=== PATIENT | female | born 1965 | race Caucasian/White ===

== ENCOUNTER → 2020-06-09 15:34 | Outpatient (CLI) | payer BC, SELFPAY ==
--- NOTE | ~2020-06-09 | XR_ITS ---
EXAMINATION: XR chest 2V 06/09/2020 15:45 INDICATION: Cough PROCEDURE: 2 view chest COMPARISON: No prior studies for comparison. FINDINGS: The lungs are clear. The cardiomediastinal silhouette is within normal limits. There are no pleural effusions. There is no pneumothorax suspected. IMPRESSION: 1: NO ACUTE CARDIOPULMONARY DISEASE. Reviewed, dictated and finalized at location A.
== END ==
PROVIDERS: PCP Physician Assistant; Visit Provider Physician Assistant
DX: R05 Cough (principal)
CPT/HCPCS: 71046

== ENCOUNTER → 2020-09-01 10:12 | Outpatient (CLI) | payer BC, SELFPAY ==
--- NOTE | ~2020-09-01 | MR_ITS ---
EXAMINATION: MR lumbar spine wo con DATE: 09/01/2020 10:56 INDICATION: Low back pain. TECHNIQUE: Magnetic resonance imaging (MRI) of the lumbar spine was performed without intravenous con trast. Sequences included sagittal T2-weighted FSE, sagittal T2-weighted FS FSE, sagittal T1-weighted FSE, and axial T2-weighted FSE. COMPARISON: Lumbar spine radiographs 03/30/2019 FINDINGS: There is 5 degrees levocurvature of lumbar spine. Vertebral body heights are normal. Interv ertebral disc heights are normal. The distal spinal cord signal intensity is normal. The conus medull mallika is at L1. The following disc levels are specifically discussed: L1-L2: The disc does not extend beyond the endplate margin. There is no facet joint osteoarthritis. T here is no neural foraminal stenosis. There is no central canal stenosis. L2-L3: The disc does not extend beyond the endplate margin. There is mild right and moderate left fac et joint osteoarthritis. There is no neural foraminal stenosis. There is no central canal stenosis. L3-L4: The disc is mildly bulging. There is mild bilateral facet joint osteoarthritis. There is mild bilateral neural foraminal stenosis. There is no central canal stenosis. L4-L5: The disc is mildly bulging. There is severe bilateral facet joint osteoarthritis. There is mil d bilateral neural foraminal stenosis. There is mild central canal stenosis. L5-S1: The disc is bulging and has an annular fissure. There is mild bilateral facet joint osteoarthr itis. There is mild bilateral neural foraminal stenosis. There is no central canal stenosis. IMPRESSION: 1. Mild lumbar spondylosis. Reviewed, dictated and finalized at location B. OLOGY TECHNICIAN IMPRESSION: 1. Mild lumbar spondylosis.
== END ==
PROVIDERS: Visit Provider Physician Assistant
DX: M47.896 Other spondylosis, lumbar region (principal)
CPT/HCPCS: 72148

== ENCOUNTER → 2020-09-22 00:13 | Outpatient (CLI) | payer BC, SELFPAY ==
[2020-09-22 18:19] LABS: SARS-CoV-2 RNA PCR Negative
== END ==
PROVIDERS: PCP Physician Assistant; Visit Provider Internal Medicine Gastroenterology
DX: Z01.812 Encounter for preprocedural laboratory examination (principal); Z20.822 Contact with and (suspected) exposure to COVID-19
CPT/HCPCS: C9803; U0003; U0005

== ENCOUNTER 2020-11-02 11:49 | Outpatient (CLI) | payer BC, SELFPAY ==
--- NOTE | ~2020-11-02 | MMUS_ITS ---
EXAMINATION: MM diagnostic emily BI w amy, US breast BI limited HISTORY: Right breast mass TECHNIQUE: Craniocaudal, mediolateral, and mediolateral oblique 3-D tomosynthesis images of the mona ts were performed and synthetic 2-D images were generated. CAD analysis was submitted and interpreted . High resolution limited bilateral breast ultrasound was performed. COMPARISON: 02/08/2013, 07/01/2011, 06/19/2011 BREAST PARENCHYMAL COMPOSITION: The breasts are heterogeneously dense, which may obscure small masses . FINDINGS: MAMMOGRAPHIC FINDINGS: Right breast: There are several adjacent, oval, obscured masses in the anterior middle thirds of the breast which measure up to 4 cm corresponding to the palpable abnormality of concern. These demonstra te a waxing and waning comparisons when compared to prior mammograms. No suspicious architectural dis tortion or calcification are identified. Left breast: There is architectural distortion in the anterior third of the inner breast at the 9:00 location 4 cm from the nipple best appreciated on craniocaudal tomosynthesis image 38/75. No suspicio us calcification is identified. ULTRASOUND: Right breast: There are multiple cysts of the right breast in the area of palpable abnormality. The l argest measures up to 5.4 cm. No suspicious cystic or solid mass is identified. Left breast: No definite sonographic correlate is identified for the mammographically detected melina ectural distortion. IMPRESSION: 1. Multiple right breast cysts corresponding to the palpable abnormality of concern. Routine screenin g is recommended. 2. Architectural distortion of the inner left breast. Tomosynthesis guided biopsy is recommended. BI-RADS category 4, suspicious findings. Reviewed, dictated and finalized at location A. IMPRESSION: 1. Multiple right breast cysts corresponding to the palpable abnormality of con cern. Routine screening is recommended. 2. Architectural distortion of the inner left breast. Tomosynthesis guided biop sy is recommended. BI-RADS category 4, suspicious findings.
== END 2020-11-02 11:50 | disposition home or self-care (01) ==
PROVIDERS: PCP Physician Assistant; Visit Provider Internal Medicine
DX: R92.8 Other abnormal and inconclusive findings on diagnostic imaging of breast (principal)
CPT/HCPCS: 76642; 77062; 77066; G0279

== ENCOUNTER → 2020-12-30 01:44 | Outpatient (CLI) | payer BC, SELFPAY ==
[2020-12-30 19:56] LABS: SARS-CoV-2 RNA PCR Negative
== END ==
PROVIDERS: PCP Physician Assistant; Visit Provider Internal Medicine Gastroenterology
DX: Z01.812 Encounter for preprocedural laboratory examination (principal); Z20.822 Contact with and (suspected) exposure to COVID-19
CPT/HCPCS: C9803; U0003; U0005

== ENCOUNTER 2021-01-03 02:24 | Day surgery (SDC) | payer BC, SELFPAY ==
[2020-09-01 13:06] VITALS: BMI 28.1
[2020-12-26 14:08] VITALS: BMI 28.1
[2021-01-03 11:54] VITALS: BP 128/65; PULSE 70; RESP 16; TEMP 36.4; O2SAT 100
--- NOTE | 2021-01-03 12:03 | WPDGICN ---
Assessment and Plan Assessment and plan (1) GERD (gastroesophageal reflux disease): Code(s): K21.9 - Gastro-esophageal reflux disease without esophagitis Status: Acute Assessment and Plan: Patient gives a long history of heartburn and acid reflux. Occasional dysphagia and choking. Occasional hoarseness attributed to this. Because of chronic symptoms are requirements for long-term acid suppression EGD will be performed today. Otherwise anti-reflux measures with elevating head of bed at night no late snacks and bland diet is encouraged. Proton pump inhibitor therapy should continue. GI Consult Note Consult date/time: 01/03/21 12:03 HPI: Amaris Marie is a 55 year old female Seen in evaluation because of long-term acid reflux symptoms. Patient has had heartburn and acid reflux for many years. She states in 2019 had a severe episode with spasms in the mid substernal portion of the chest. Since then she has had intermittent hoarseness. Acid reflux appears to worsen. She has occasional dysphagia. ENT evaluation was performed in erosions were identified in the vocal cords suggestive of silent acid reflux. Since then she has been maintained on proton pump inhibitor therapy. Currently she has relief taking Prevacid in the morning Protonix in the evening and Pepcid supplemental at bedtime. Patient intermittently complains of worsening this. She continues to have episodes of choking despite be taking this medicine perhaps every 3 or 4 days. Patient denies any weight loss or bleeding. Family history is noncontributory. Patient has never had an EGD and presents today for surveillance endoscopy to exclude Barboza's esophagus and to assess current therapy. Review of Systems Review of Systems: All systems reviewed & are unremarkable except as noted in HPI and below [facility] Past Medical History Medical History Ganglion, right wrist Iliotibial band syndrome affecting left lower leg Lateral meniscus tear, current Family History Family History (System 11/02/20 @ 14:58 by Xiomy Guthrie) Mother Patient's mother is in good health Family history of diabetes mellitus in first degree relative Asthma Family history of elevated blood lipids Grandparent Family history of coronary artery disease, Onset Age: 75 Diabetes mellitus, Onset Age: 70 Father Hypertension Patient's father is in good health Other Family history of arthritis Family history of cardiovascular disease Family history of kidney disease Social History Social History (System 11/02/20 @ 14:58 by Xiomy Guthrie) Smoking status: Never smoker Second hand tobacco smoke exposure: No Alcohol intake: current Alcohol use details: 1-2 PER MONTH Substance use: unknown Substance use type: does not use Living arrangements: with family Gender identity (if verbalized by the patient): Female Sexual Orientation (if Verbalized by the Patient): Straight or Heterosexual Spiritual care concerns: No Meds Home Medications and Allergies Home Medications Medication Instructions Recorded Confirmed Type cholecalciferol (vitamin D3) 125 5,000 unit PO DAILY 08/24/19 09/01/20 History mcg (5,000 unit) capsule sumatriptan succinate 100 mg tablet 100 mg PO ONCE 08/24/19 09/01/20 History magnesium oxide 400 mg PO DAILY #90 cap 01/12/20 01/03/21 Rx potassium chloride 10 mEq 10 meq PO DAILY #180 tablet 02/16/20 01/03/21 Rx tablet,extended release albuterol sulfate 90 mcg/actuation 2 inhalation INHALATION Q6H PRN 05/02/20 01/03/21 History breath activated powder inhaler pantoprazole 40 mg tablet,delayed 40 mg PO QAM #90 tablet 07/04/20 09/01/20 Rx release famotidine 20 mg tablet 40 mg PO DAILY 08/29/20 09/01/20 History hydrocodone 5 mg-acetaminophen 325 1 tablet PO Q8H PRN #30 tablet 08/29/20 09/01/20 Rx mg tablet lansoprazole 30 mg capsule,delayed 30 mg PO DAILY
[2021-01-03] MEDS: LACTATED RINGERS 1,000 ML 150 ML IV CONT (12:12)
--- NOTE | 2021-01-03 12:18 | WPDANESEPPF ---
Anes - Initial Pre Proc Eval Procedure: Operation Date: 01/03/21 12:15 Proposed Procedures p Esophagogastroduodenoscopy - Diomedes Pulido MD Date/Time: 01/03/21 12:18 Surgeon: Diomedes Pulido MD Pre Op Diagnosis: Dysphagia, GERD Patient Data Age: 55 Gender: F Height: 5 ft 8 in Weight: 86.2 kg Last Vital Signs Temp 97.5 F L 01/03/21 11:54 Pulse 70 01/03/21 11:54 Resp 16 01/03/21 11:54 BP 128/65 01/03/21 11:54 Pulse Ox 100 01/03/21 11:54 Allergies Allergy/AdvReac Type Severity Reaction Status Date / Time Influenza Virus Vaccines Allergy Unknown Itching,Marco Verified 01/03/21 11:52 ma vancomycin Allergy Unknown Unknown Verified 01/03/21 11:52 azithromycin Allergy Hypotension Verified 01/03/21 11:52 [From Zithromax Z-Juaquin] clarithromycin Allergy Itching Verified 01/03/21 11:52 meperidine Allergy Itching Verified 01/03/21 11:52 naproxen Allergy Unknown Verified 01/03/21 11:52 Home Medications Medication Instructions Recorded Confirmed Type cholecalciferol (vitamin D3) 125 5,000 unit PO DAILY 08/24/19 01/03/21 History mcg (5,000 unit) capsule sumatriptan succinate 100 mg tablet 100 mg PO ONCE 08/24/19 01/03/21 History magnesium oxide 400 mg PO DAILY #90 cap 01/12/20 01/03/21 Rx potassium chloride 10 mEq 10 meq PO DAILY #180 tablet 02/16/20 01/03/21 Rx tablet,extended release albuterol sulfate 90 mcg/actuation 2 inhalation INHALATION Q6H PRN 05/02/20 01/03/21 History breath activated powder inhaler pantoprazole 40 mg tablet,delayed 40 mg PO QAM #90 tablet 07/04/20 01/03/21 Rx release famotidine 20 mg tablet 40 mg PO DAILY 08/29/20 01/03/21 History hydrocodone 5 mg-acetaminophen 325 1 tablet PO Q8H PRN #30 tablet 08/29/20 01/03/21 Rx mg tablet lansoprazole 30 mg capsule,delayed 30 mg PO DAILY 08/29/20 01/03/21 History release atorvastatin 10 mg tablet 10 mg PO DAILY #90 tablet 09/25/20 01/03/21 Rx metoprolol succinate 25 mg 25 mg PO DAILY #90 tablet 09/25/20 01/03/21 Rx tablet,extended release 24 hr triamterene 37.5 See Rx Instructions .ROUTE 10/30/20 01/03/21 Rx mg-hydrochlorothiazide 25 mg tablet .COMPLEX #90 tablet cyclobenzaprine 10 mg tablet 10 mg PO .QHS PRN #30 tablet 11/28/20 01/03/21 Rx topiramate 25 mg tablet 25 mg PO QHS #30 tablet 12/27/20 01/03/21 Rx Patient hx anesthesia problems: none Family hx anesthesia problems: none [facility] Past Medical History Medical History (Updated 01/03/21 @ 12:18 by Diomedes Pulido MD) Asthma Ganglion, right wrist Iliotibial band syndrome affecting left lower leg Lateral meniscus tear, current Migraine Family History Family History (System 11/02/20 @ 14:58 by Xiomy Guthrie) Mother Patient's mother is in good health Family history of diabetes mellitus in first degree relative Asthma Family history of elevated blood lipids Grandparent Family history of coronary artery disease, Onset Age: 75 Diabetes mellitus, Onset Age: 70 Father Hypertension Patient's father is in good health Other Family history of arthritis Family history of cardiovascular disease Family history of kidney disease Social History Social History (System 11/02/20 @ 14:58 by Xiomy Guthrie) Smoking status: Never smoker Second hand tobacco smoke exposure: No Alcohol intake: current Alcohol use details: 1-2 PER MONTH Substance use: unknown Substance use type: does not use Living arrangements: with family Gender identity (if verbalized by the patient): Female Sexual Orientation (if Verbalized by the Patient): Straight or Heterosexual Spiritual care concerns: No Anes - Eval Final PreProcedure Day of Procedure 01/03/21 12:18 Patient weight: overweight Heart: regular rate and rhythm Lungs: clear to auscultation Airway: Mallampati scale class II Neurological: alert and oriented Last oral intake: >/= 8 hours ASA classification: II Emergent: no Anesthetic plan: proceed Anesthesia typ
[2021-01-03] MEDS: BENZOCAINE (*SP) 60 ML SPRAY CAN (HURRICAINE) 1 SPRAY MUCOUS MEM (12:32)
[2021-01-03 12:43] VITALS: BP 93/55; PULSE 73; RESP 16; O2SAT 98
[2021-01-03 12:53] VITALS: BP 101/62; PULSE 76; RESP 16; O2SAT 100
[2021-01-03 13:03] VITALS: BP 106/68; PULSE 63; RESP 17; O2SAT 100
== END 2021-01-03 13:25 | disposition home or self-care (01) ==
PROVIDERS: PCP Physician Assistant; Visit Provider Internal Medicine Gastroenterology
PROC: 0DJ08ZZ Inspection of Upper Intestinal Tract, Via Natural or Artificial Opening Endoscopic (ICD-10-PCS; CPT 43235; principal; 2021-01-03 12:15)
DX: K21.9 Gastro-esophageal reflux disease without esophagitis (principal); M76.32 Iliotibial band syndrome, left leg
CPT/HCPCS: 43239; 43450; 87081; J2704; J7120

== ENCOUNTER 2021-01-17 09:42 | Outpatient (CLI) | payer BC, SELFPAY ==
[2021-01-17 10:43] LABS: Anion Gap 10 mmol/L (8-16); Blood Urea Nitrogen 18 mg/dL (7-17); Calcium 9.3 mg/dL (8.4-10.2); Carbon Dioxide 27 mmol/L (22-30); Chloride 104 mmol/L (98-107); Estimated Glomerular Filt Rate 52; Glucose 95 mg/dL (65-105); Potassium 3.7 mmol/L (3.4-5.0); Sodium 141 mmol/L (137-145)
== END 2021-01-17 09:43 | disposition home or self-care (01) ==
PROVIDERS: Anesthesiology; PCP Physician Assistant; Visit Provider Orthopaedic Surgery
DX: Z79.899 Other long term (current) drug therapy (principal); Z01.818 Encounter for other preprocedural examination
CPT/HCPCS: 36415; 80048

== ENCOUNTER → 2021-01-19 02:56 | Outpatient (CLI) | payer BC, SELFPAY ==
[2021-01-19 19:50] LABS: SARS-CoV-2 RNA PCR Negative
== END ==
PROVIDERS: PCP Physician Assistant; Visit Provider Orthopaedic Surgery
DX: Z01.812 Encounter for preprocedural laboratory examination (principal); Z20.822 Contact with and (suspected) exposure to COVID-19
CPT/HCPCS: C9803; U0003; U0005

== ENCOUNTER 2021-01-22 00:40 | Day surgery (SDC) | payer BC, SELFPAY ==
[2021-01-11 12:55] VITALS: BMI 28.1
--- NOTE | 2021-01-19 09:19 | WPDANESEPPF ---
Anes - Initial Pre Proc Eval Procedure: Operation Date: 01/22/21 07:30 Proposed Procedures p Excision Right Wrist Ganglion Cyst - Félix Reyes MD Date/Time: 01/19/21 09:19 Surgeon: Félix Reyes MD Pre Op Diagnosis: right wrist ganglion cyst Patient Data Age: 55 Gender: F Height: 1.73 m Weight: 84 kg Allergies Allergy/AdvReac Type Severity Reaction Status Date / Time Influenza Virus Vaccines Allergy Unknown Itching,Marco Verified 01/09/21 08:44 ma azithromycin Allergy Hypotension Verified 01/09/21 08:44 [From Zithromax Z-Juaquin] clarithromycin Allergy Itching Verified 01/09/21 08:44 meperidine Allergy Itching Verified 01/09/21 08:44 naproxen Allergy Swelling Verified 01/11/21 12:25 Home Medications Medication Instructions Recorded Confirmed Type cholecalciferol (vitamin D3) 125 5,000 unit PO DAILY 08/24/19 01/11/21 History mcg (5,000 unit) capsule sumatriptan succinate 100 mg tablet 100 mg PO ONCE 08/24/19 01/11/21 History potassium chloride 10 mEq 10 meq PO DAILY #180 tablet 02/16/20 01/11/21 Rx tablet,extended release albuterol sulfate 90 mcg/actuation 2 inhalation INHALATION Q6H PRN 05/02/20 01/11/21 History breath activated powder inhaler famotidine 20 mg tablet 40 mg PO DAILY 08/29/20 01/11/21 History hydrocodone 5 mg-acetaminophen 325 1 tablet PO Q8H PRN #30 tablet 08/29/20 01/11/21 Rx mg tablet lansoprazole 30 mg capsule,delayed 30 mg PO DAILY 08/29/20 01/11/21 History release triamterene 37.5 See Rx Instructions .ROUTE 10/30/20 01/11/21 Rx mg-hydrochlorothiazide 25 mg tablet .COMPLEX #90 tablet cyclobenzaprine 10 mg tablet 10 mg PO .QHS PRN #30 tablet 11/28/20 01/11/21 Rx topiramate 25 mg tablet 25 mg PO QHS #30 tablet 12/27/20 01/11/21 Rx magnesium oxide 400 mg (241.3 mg See Rx Instructions .ROUTE 01/11/21 01/11/21 Rx magnesium) tablet .COMPLEX #90 tablet metoprolol succinate 25 mg See Rx Instructions .ROUTE 01/11/21 01/11/21 Rx tablet,extended release 24 hr .COMPLEX #90 tablet pantoprazole 40 mg tablet,delayed See Rx Instructions .ROUTE 01/11/21 01/11/21 Rx release .COMPLEX #90 tablet atorvastatin 10 mg tablet 10 mg PO DAILY #90 tablet 01/12/21 01/12/21 Rx Patient hx anesthesia problems: none Family hx anesthesia problems: none PMF[facility] Past Medical History Medical History (Updated 01/19/21 @ 09:29 by Mega Medina MD) Asthma Chronic low back pain Ganglion, right wrist GERD (gastroesophageal reflux disease) Hyperlipidemia Iliotibial band syndrome affecting left lower leg Lateral meniscus tear, current Migraine Family History Family History Mother Patient's mother is in good health Family history of diabetes mellitus in first degree relative Asthma Family history of elevated blood lipids Grandparent Family history of coronary artery disease, Onset Age: 75 Diabetes mellitus, Onset Age: 70 Father Hypertension Patient's father is in good health Other Family history of arthritis Family history of cardiovascular disease Family history of kidney disease Social History Social History Smoking status: Never smoker Second hand tobacco smoke exposure: No Alcohol intake: current Alcohol use details: STATES MAYBE 1-2 DRINKS A MONTH Substance use: never Substance use type: does not use Living arrangements: with family Gender identity (if verbalized by the patient): Female Spiritual care concerns: No Anes - Eval Final PreProcedure Day of Procedure 01/19/21 09:19 Patient weight: overweight Heart: regular rate and rhythm Lungs: clear to auscultation and normal air movement Airway: Mallampati scale class II Neurological: alert and oriented Last oral intake: >/= 8 hours ASA classification: II Emergent: no Anesthetic plan: proceed Anesthesia type and monitoring: general GIVS and LMA Informed Consent
[2021-01-22] VITALS (7 sets, daily range): BP systolic 105–124; BP diastolic 57–67; PULSE 50–75; RESP 12–14; TEMP 36.3; O2SAT 96–100
--- NOTE | 2021-01-22 06:56 | WPDHPUPDATE1 ---
History and Physical Update Update Date/Time: 01/22/21 06:56 History and Physical has been reviewed, including an updated exam of the patient. There are NO changes in the patient's condition. Covid test negative. Risks, benefits, and alternatives have been discussed and questions answered. Patient agrees to proceed with procedure.
[2021-01-22] MEDS: ACETAMINOPHEN 500 MG TABLET 1000 MG PO (07:16)
[2021-01-22] MEDS: LACTATED RINGERS 1,000 ML 30 ML IV CONT ×2 (07:20→08:28)
[2021-01-22] MEDS: ceFAZolin 2 GM/D5W 50 ML 2 GM/50 ML BAG IVPB (07:29)
[2021-01-22] MEDS: BUPIVACAINE HCL 0.5% PF 30 ML VIAL INFILTRATE (07:59)
--- NOTE | 2021-01-22 08:38 | W.PM.PROC2 ---
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 Enlarging size. Patient desires excision. Findings 1.5 cm x 1 5 cm ganglion cyst volar right wrist from the flexor carpi radialis tendon sheath. Description of Procedure What was done: Patient identified in the preoperative holding. Informed consent given. Operative extremity marked. Patient received intravenous antibiotics. Patient brought to the operating room where underwent sedation by anesthesia team. Positioned supine on operating room table. Time-out performed confirming the patient, site of the surgery and the plan. Right hand and wrist prepped draped usual sterile surgical fashion using a ChloraPrep skin solution. Local anesthetic with 0.5% Marcaine plain. There was a previous transverse incision on the volar aspect of the right wrist. We utilized this incision. New incision made with 15 blade knife. Hemostasis controlled electrocautery and bipolar cautery. The cystic structure was found just deep to the fascia. This was freed up circumferentially. Was found to be attached to the volar tendon sheath of the flexor carpi radialis. This was removed as 1 unit passed off as specimen. There was mild synovium of the flexor carpi radialis which was sharply excised. All cystic material was removed. Hemostasis further controlled with bipolar cautery. Wound thoroughly irrigated with solution. Soft tissue closed with 3 Monocryl interrupted suture. Skin approximated 3 O nylon interrupted suture. Sterile dressing applied. The patient was then woken from anesthesia, extubated and taken to the recovery room in stable condition. All sponge, needle, instrument counts were correct at the end of the case. Estimated Blood Loss 5 Tourniquet Time 0 Drains No Packing No Pathology yes (Cyst volar right wrist) Complications None Condition stable Disposition PACU
[2021-01-22] MEDS: oxyCODONE HCL (*CRX) 5 MG TAB IR PO (08:50)
[2021-01-22] MEDS: fentaNYL CITRATE INJ (*CRX) 100 MCG/2 ML VIAL 25 MCG IV PUSH (08:50)
[2021-01-22] MEDS: ONDANSETRON INJ 4 MG/2 ML VIAL IV PUSH (09:34)
[2021-01-22] MEDS: SCOPOLAMINE 1.5 MG PATCH TRANSDERM (10:47)
== END 2021-01-22 11:09 | disposition home or self-care (01) ==
PROVIDERS: PCP Physician Assistant; Visit Provider Orthopaedic Surgery
PROC: (CPT 25111; principal; 2021-01-22 07:30)
DX: M67.431 Ganglion, right wrist (principal); Z79.51 Long term (current) use of inhaled steroids; G43.909 Migraine, unspecified, not intractable, without status migrainosus; K21.9 Gastro-esophageal reflux disease without esophagitis; E78.5 Hyperlipidemia, unspecified; M76.31 Iliotibial band syndrome, right leg; M25.531 Pain in right wrist
CPT/HCPCS: 25111; 88304; 88305; A9270; J0690; J1100; J1200; J2250; J2405; J2704; J3010; J7120

== ENCOUNTER → 2021-11-26 14:42 | Outpatient (CLI) | payer BC, SELFPAY ==
--- NOTE | ~2021-11-26 | XR_ITS ---
EXAM: XR lumbar spine min 4V HISTORY: Other fracture of second lumbar vertebra COMPARISON: 03/30/2019. FINDINGS: Decreased mineralization. 5 nonrib-bearing lumbar-type vertebral bodies with intact pedicl es no pars defect. Mild facet hypertrophy in the lower lumbar spine. Mild lateral scoliosis centered at L2. Vertebral bodies are aligned. Mild anterior wedge deformity at L2. Superior and inferior endpl ate deformities at multiple levels as can be seen with osteoporosis. Mild degenerative change in the SI joints. IMPRESSION: Acute versus chronic mild L2 compression fracture. Multilevel superior endplate deformities as can be seen with osteoporosis. Reviewed, dictated and finalized at location K.
== END ==
PROVIDERS: PCP Internal Medicine; Visit Provider Neurological Surgery
DX: S32.028A Other fracture of second lumbar vertebra, initial encounter for closed fracture (principal); X58.XXXA Exposure to other specified factors, initial encounter; M81.0 Age-related osteoporosis without current pathological fracture
CPT/HCPCS: 72110

== ENCOUNTER → 2021-12-26 14:35 | Outpatient (CLI) | payer BC, SELFPAY ==
--- NOTE | ~2021-12-26 | DEXA_ITS ---
Bone Density Report Name: MYRNA GARCIA Age: 56 Sex: Female Ethnicity: White Date of : 1965 Indication: postmenopausal; screening for osteoporosis; height loss; prior fracture; asthma or emphysema; hysterectomy; Referring Provider: Virgilio Lang Study: Bone densitometry was performed. Exam Date: December 26, 2021 Accession number: [id number] Bone Density: Region BMD T-score Z-score Classification AP Spine (L1-L4) 1.061 0.1 1.2 Normal Femoral Neck (Left) 0.664 -1.7 -0.6 Osteopenia Total Hip (Left) 0.846 -0.8 -0.1 Normal Femoral Neck (Right) 0.715 -1.2 -0.1 Osteopenia Total Hip (Right) 0.815 -1.0 -0.3 Normal Total Hip Mean 0.831 -0.9 -0.2 Normal World Health Organization criteria for BMD impression classify patients as: Normal (T-score at or above -1.0), Osteopenia (T-score between -1.0 and -2.5), or Osteoporosis (T-score at or below -2.5). 10-year Fracture Risk: FRAX not reported because: Prior hip or vertebral fracture Clinical Information Provided by Patient: Have had a previous hip or vertebral fracture Has had a low trauma fracture Has used the following medications: Vitamin D Has the following medical conditions: Asthma or Emphysema, Hysterectomy Patient maximum height was 69 Menopause Age: 49 No regular weight bearing exercise Drinks caffeinated beverages Onset of menses at age 15 Number of children 1 Impression: The patient has low bone mass, based on the Left Femoral Neck T-score. The patient has risk factors, including: previous fracture. Discussion: INCREASED RISK OF FRACTURE DUE TO HISTORY OF FRACTURE. The patient's previous fracture puts the patient at high risk of a future fracture. In untreated patients, the risk of osteoporotic fracture increases approximately two-fold for each 1.0 SD decrease in T-score. Low bone density is not the only risk factor for fracture; also consider factors such as patient's age, frailty or poor health, risk of falling, risk of injury, previous osteoporotic fracture, family history of osteoporosis, cigarette smoking, low body weight, etc. Not everyone with a low trauma fracture has osteoporosis; osteomalacia and other metabolic bone disorders should also be considered. Patients who have osteoporosis should be evaluated for specific diseases and conditions (secondary causes) that may cause or contribute to bone loss and fracture risk. National Osteoporosis Foundation (NOF) recommends pharmacologic intervention for patients with a prior hip or vertebral fracture regardless of BMD T-score. The patient should follow a healthful lifestyle (good nutrition with adequate calcium and vitamin D, and appropriate weight-bearing exercise). Follow-Up: Consider a repeat BMD and Vertebral Fracture Assessment (VFA) exam in 2 years or sooner if medically necessary, to reass
== END ==
PROVIDERS: PCP Internal Medicine; Visit Provider Physician Assistant
DX: S32.000A Wedge compression fracture of unspecified lumbar vertebra, initial encounter for closed fracture (principal); X58.XXXA Exposure to other specified factors, initial encounter
CPT/HCPCS: 77080

== ENCOUNTER → 2022-04-23 09:37 | Outpatient (CLI) | payer BC, SELFPAY ==
--- NOTE | ~2022-04-23 | MR_ITS ---
EXAMINATION: MR knee LT wo con DATE: 04/23/2022 10:19 INDICATION: Chronic left knee injury with pain and medial meniscal tear TECHNIQUE: Magnetic resonance imaging (MRI) of the left knee was performed without intravenous contra st. Sequences included coronal PD-weighted FSE, coronal PD-weighted FS FSE, sagittal T2-weighted FSE , sagittal PD-weighted FS FSE and axial PD weighted fat saturated FSE. COMPARISON: None. FINDINGS: Medial compartment: Medial meniscus is normal. Articular cartilage is normal. Lateral compartment: Longitudinal horizontal tear which extends to contact the cephalad articular surface at the anterior horn and body. Additional tear with truncation of the normally sharp inner free edge of the posterior horn. Articular cartilage is normal. Patellofemoral compartment: Partial-thickness chondral ulceration with deep fissuring without degenerative subchondral changes at the central aspect of the patellar apical ridge. Additional deep chondral fissuring with minimal und erlying subarticular edema-like signal change at the caudal aspect of the trochlear groove. Ligaments and tendons: Anterior and posterior cruciate ligaments are normal. The medial collateral ligament and fibular sg ateral ligament complex are normal. The extensor mechanism is normal. The visualized medial and later al hamstring tendons as well as the iliotibial band are normal. Fluid: Small left knee joint effusion at the suprapatellar pouch. There is a small suprapatellar plical band . No loose osteochondral bodies identified. Osseous/other: Normal marrow signal. No fracture or pathologic marrow replacing process. IMPRESSION: 1. Complex medial meniscal tear with longitudinal horizontal component at the anterior horn and body and with vertical tear plane with truncation of the innermost free edge of the posterior horn. 2. Mild patellofemoral osteoarthritis with small regions of moderate grade patellar and high-grade tr ochlear chondromalacia. 3. Small left knee joint effusion. Reviewed, dictated and finalized at location A. IMPRESSION: 1. Complex medial meniscal tear with longitudinal horizontal component at the a nterior horn and body and with vertical tear plane with truncation of the inner most free edge of the posterior horn. 2. Mild patellofemoral osteoarthritis with small regions of moderate grade wyman llar and high-grade trochlear chondromalacia. 3. Small left knee joint effusion.
== END ==
PROVIDERS: PCP Internal Medicine; Visit Provider Orthopaedic Surgery
DX: S83.232A Complex tear of medial meniscus, current injury, left knee, initial encounter (principal); X58.XXXA Exposure to other specified factors, initial encounter
CPT/HCPCS: 73721

== ENCOUNTER → 2022-10-30 10:32 | Outpatient (CLI) | payer BC, SELFPAY ==
--- NOTE | ~2022-10-30 | XR_ITS ---
Right Hand Technique: PA, oblique, and lateral views were obtained. Clinical History: Thumb pain Findings: No acute fracture or dislocation is seen. Osseous alignment is anatomic. Joint spaces are p reserved. Soft tissues are unremarkable. Impression: Unremarkable right hand. Reviewed, dictated and finalized at location M. Impression: Unremarkable right hand.
== END ==
PROVIDERS: PCP Physician Assistant; Visit Provider Physician Assistant
DX: M79.641 Pain in right hand (principal)
CPT/HCPCS: 73130

== ENCOUNTER → 2023-05-12 13:41 | Outpatient (CLI) | payer BC, SELFPAY ==
--- NOTE | ~2023-05-12 | CT_ITS ---
EXAMINATION: CT abdomen pelvis wo con DATE: 05/12/2023 14:01 INDICATION: Left lower quadrant sharp abdominal pain which began 05/08/2023 TECHNIQUE: Computed tomography (CT) of the abdomen and pelvis was performed without intravenous contr ast. Automated exposure control and iterative reconstruction technique were employed. Exam dose: 777 .57 mGy-cm total exam DLP. COMPARISON: September 25, 2018 radionuclide hepatobiliary scan, reported normal January 15, 2016 CT abdomen pelvis FINDINGS: The lung bases are clear. Normal heart size. No pericardial or pleural effusion. The liver, gallbladder, bile ducts, spleen, pancreas and pancreatic duct are unremarkable on this bernstein ited noncontrast examination. Normal morphology of the adrenal glands. Again noted is a nonobstructing approximately 2.5 x 4 mm right renal calculus. No ureteral calculus o r hydroureteronephrosis is noted on either side. 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 This noncontrast examination is not sensitive for exclusion of all visceral including renal space-occ upying mass lesions. Normal caliber of the abdominal aorta. No intraperitoneal or retroperitoneal or pelvic mass lesion or adenopathy or ascites. The urinary bladder is unremarkable. Status post hysterectomy. No bowel obstruction, bowel wall thickening, pneumatosis or intraperitoneal free air. Small fat-containing umbilical hernia. There is moderate chronic L2 compression fracture, chronic. Prominent degenerative changes of the apophyseal joints with minimal grade 1 anterolisthesis at L4-5. IMPRESSION: L2 compression fracture since 01/15/2016; no other significant change since 01/25/2016 is d etected on this limited noncontrast examination Reviewed, dictated and finalized at Location A. Reviewed, dictated and finalized at location B. IMPRESSION: L2 compression fracture since 01/15/2016; no other significant brock e since 01/25/2016 is detected on this limited noncontrast examination
== END ==
PROVIDERS: PCP Internal Medicine; Visit Provider Internal Medicine
DX: R10.32 Left lower quadrant pain (principal); S32.020D Wedge compression fracture of second lumbar vertebra, subsequent encounter for fracture with routine healing; X58.XXXD Exposure to other specified factors, subsequent encounter
CPT/HCPCS: 74176

== ENCOUNTER 2023-05-15 10:33 | Outpatient (CLI) | payer BC, SELFPAY ==
--- NOTE | 2023-05-15 10:43 | ECG_ITS ---
Measurements Intervals [place] Rate: 59 P: 27 MT: 160 QRS: 5 QRSD: 97 T: 18 QT: 407 QTc: 405 Interpretive Statements SINUS BRADYCARDIA NO PREVIOUS ECG AVAILABLE FOR COMPARISON Electronically Signed On 05-15-2023 12:47:22 CDT by Abelino Stevens M.D.
== END 2023-05-15 10:34 | disposition home or self-care (01) ==
LOC: ANHSURGERY 10:39
PROVIDERS: PCP Physician Assistant; Visit Provider Orthopaedic Surgery
DX: E78.5 Hyperlipidemia, unspecified (principal); Z01.818 Encounter for other preprocedural examination
CPT/HCPCS: 93005

== ENCOUNTER 2023-05-22 01:10 | Day surgery (SDC) | payer BC, SELFPAY ==
[2023-05-12 14:57] VITALS: BMI 29.6
--- NOTE | 2023-05-12 15:03 | PC.NURSE ---
Report to the Outpatient Waiting Room, entrance under the green pavilion located off [facility], at time 10:00 on date 05/22/23. Planned Procedure Time: 12:00. Time changes happen often and if your time is changed the preop area will call you the afternoon before. - You and your visitor will be asked to self-screen and do not enter if you have any COVID symptoms. - A mask is optional within the hospital at this time. Patients may have clear liquids (water, carbonated beverages, clear teas, apple juice) until 3 hours prior to surgery (9:00) with a maximum of 20 ounces. - No food from midnight until time of surgery Take the following medications with a SIP of water the morning of surgery: INHALER AND PAIN PILL IF NEEDED, TOPIRAMATE DO NOT STOP ANY OF YOUR OTHER PRESCRIPTION MEDICATIONS PRIOR TO SURGERY ?EXCEPT THE FOLLOWING Medications to discontinue per physician: VITAMINS/SUPPLEMENTS Date to take last dose: 05/18/23 Please no make-up, nail mongolian, hairspray, perfume, deodorant, or body powder the day of surgery. No jewelry (including any body piercings) or valuables the day of surgery, leave them at home. Please take a shower or bath the night before, or the morning of, surgery with an antibacterial soap. Wear comfortable, loose fitting clothing. - Jewelry must be removed prior to entering the operating room. Rings and piercings that are not removed may be cut off. - The hospital will not accept responsibility for valuables. - Please leave all valuables, including medications, at home the day of surgery. If you are going home after surgery, a licensed chair car driver must drive you home. - NO public transportation without another adult if you receive anesthesia. - We recommend that an adult stay with you for 24 hours following discharge. - We also recommend that you do not drive, make important decision, drink alcoholic beverages, or take any drugs that were not prescribed by your health care provider for at least 24 hours after your discharge time. Follow any additional instructions given to you from your surgeon. If you or anyone in your household have experienced Covid symptoms in the past week, please notify your surgeon or the nurse liaison at the phone number below for possible testing. Telephone instructions given to PT - MYRNA GARCIA and asked if any additional questions and then verbalized understanding. Patient advised to call surgeon office or pre surgery nurse liaison [phone] if any additional questions.
--- NOTE | 2023-05-21 12:23 | PM.IMHP ---
H&P: HPI History of Present Illness Date/Time: 05/21/23 12:23 Chief Complaint: Left knee pain Narrative: 58-year-old woman with left knee pain after several injuries. MRI demonstrates lateral meniscus tear and intra-articular derangement. Symptoms unrelieved with cortisone injection, therapy, home exercises. Symptoms interfere with daily activity and exercise. Presents now for operative treatment. [facility] Past Medical History Medical History Acute medial meniscus tear of left knee Arthritis of knee, left Asthma Chronic low back pain Ganglion cyst of volar aspect of right wrist Ganglion, right wrist GERD (gastroesophageal reflux disease) Hyperlipidemia Iliotibial band syndrome affecting left lower leg Lateral meniscus tear, current Migraine Family History Family History Mother Patient's mother is in good health Family history of diabetes mellitus in first degree relative Asthma Family history of elevated blood lipids Grandparent Family history of coronary artery disease, Onset Age: 75 Diabetes mellitus, Onset Age: 70 Father Hypertension Patient's father is in good health Other Family history of arthritis Family history of cardiovascular disease Family history of kidney disease Social History Social History Smoking status: Never smoker Second hand tobacco smoke exposure: No Alcohol intake: current Alcohol use details: 2/MONTH Substance use: never Substance use type: does not use Lack of Transportation: No Lack of Food: Never True Current Housing: I Have Housing Concerned About Future Housing: No Difficulty Paying Gas/Electric Bills: No Difficulty Paying for Meds: No Currently Unemployed: No Education: Bachelor's Degree Difficulty w/ Childcare or Family Care: No Living arrangements: with family Gender identity (if verbalized by the patient): Female Sexual Orientation (if Verbalized by the Patient): Straight or Heterosexual Spiritual care concerns: No Meds Home Medications and Allergies Home Medications Medication Instructions Recorded Confirmed Type cholecalciferol (vitamin D3) 125 5,000 unit PO DAILY 08/24/19 05/12/23 History mcg (5,000 unit) capsule famotidine 20 mg tablet 40 mg PO DAILY 08/29/20 05/12/23 History lansoprazole 30 mg capsule,delayed 30 mg PO DAILY 08/29/20 05/12/23 History release (Prevacid) diphenhydramine HCl 25 mg capsule 25 mg PO QHS 01/24/21 05/12/23 History (Benadryl) ondansetron HCl 4 mg tablet 8 mg PO Q8H PRN nausea and vomiting 02/15/21 05/12/23 History (Zofran) sumatriptan succinate 100 mg 50 mg PO ONCE PRN migraine headache 02/15/21 05/12/23 History tablet (Imitrex) albuterol sulfate 90 mcg/actuation 2 inh inhalation Q6H PRN ASTHMA 05/29/21 05/12/23 Rx breath activated powder inhaler ATTACK #1 ea hydrocodone 5 mg-acetaminophen 325 1 tablet PO BID PRN pain #30 tabs 10/30/22 05/12/23 Rx mg tablet pantoprazole 40 mg tablet,delayed See Rx Instructions .Route 01/03/23 05/12/23 Rx release .COMPLEX #90 tabs metoprolol succinate 25 mg See Rx Instructions .Route 01/24/23 05/12/23 Rx tablet,extended release 24 hr .COMPLEX #90 tabs potassium chloride 10 mEq 10 meq PO DAILY #180 tabs 02/14/23 05/12/23 Rx tablet,extended release calcium carbonate 600 mg calcium 600 mg PO DAILY 03/12/23 05/12/23 History (1,500 mg) tablet (Calcium) topiramate 25 mg capsule,extended See Rx Instructions .Route 03/12/23 05/12/23 Rx release 24 hr .COMPLEX #90 caps magnesium oxide 400 mg (241.3 mg See Rx Instructions .Route 05/16/23 Rx magnesium) tablet .COMPLEX #90 tabs atorvastatin 10 mg tablet See Rx Instructions .Route 05/19/23 Rx .COMPLEX #90 tabs Allergies Allergy/AdvReac Type Severity Reaction Status Date / Time Influenza Virus Vaccines
[2023-05-22] VITALS (8 sets, daily range): BP systolic 106–138; BP diastolic 66–85; PULSE 53–70; RESP 11–20; TEMP 36.6–36.9; O2SAT 100; BMI 30.2
[2023-05-22] MEDS: ACETAMINOPHEN 500 MG TABLET 1000 MG PO (11:00)
[2023-05-22] MEDS: KETOROLAC 15 MG/ML VIAL (*BKC) IV PUSH (11:01)
--- NOTE | 2023-05-22 11:26 | WPDANESEPPF ---
Anes - Initial Pre Proc Eval Procedure: Operation Date: 05/22/23 12:00 Proposed Procedures p Left Knee Arthroscopy, Debride Meniscus, Synovectomy, Chondroplasty, Proceed As Indicated - Félix Reyes MD Date/Time: 05/22/23 11:26 Surgeon: Félix Reyes MD Pre Op Diagnosis: Lt Knee Pain, Lt Meniscus Tear, Chondromalacia Patient Data Age: 58 Gender: F Height: 1.73 m Weight: 90.35 kg Last Vital Signs Temp 36.9 C 05/22/23 10:30 Pulse 69 05/22/23 10:30 Resp 20 05/22/23 10:30 BP 138/71 05/22/23 10:30 Pulse Ox 100 05/22/23 10:30 Allergies Allergy/AdvReac Type Severity Reaction Status Date / Time Influenza Virus Vaccines Allergy Unknown Itching,Marco Verified 05/22/23 10:36 ma adhesive tape Allergy Blister Verified 05/22/23 10:54 azithromycin Allergy Hypotension Verified 05/22/23 10:36 [From [facility] [employer]] clarithromycin Allergy Itching Verified 05/22/23 10:36 Macrolide Antibiotics Allergy Hypotension Verified 05/22/23 10:36 meperidine Allergy Rash Verified 05/22/23 10:36 naproxen Allergy Swelling Verified 05/22/23 10:36 Home Medications Medication Instructions Recorded Confirmed Type cholecalciferol (vitamin D3) 125 5,000 unit PO DAILY 08/24/19 05/22/23 History mcg (5,000 unit) capsule famotidine 20 mg tablet 40 mg PO DAILY 08/29/20 05/22/23 History lansoprazole 30 mg capsule,delayed 30 mg PO DAILY 08/29/20 05/22/23 History release (Prevacid) diphenhydramine HCl 25 mg capsule 25 mg PO QHS 01/24/21 05/22/23 History (Benadryl) ondansetron HCl 4 mg tablet 8 mg PO Q8H PRN nausea and vomiting 02/15/21 05/22/23 History (Zofran) sumatriptan succinate 100 mg 50 mg PO ONCE PRN migraine headache 02/15/21 05/22/23 History tablet (Imitrex) albuterol sulfate 90 mcg/actuation 2 inh inhalation Q6H PRN ASTHMA 05/29/21 05/22/23 Rx breath activated powder inhaler ATTACK #1 ea hydrocodone 5 mg-acetaminophen 325 1 tablet PO BID PRN pain #30 tabs 10/30/22 05/22/23 Rx mg tablet pantoprazole 40 mg tablet,delayed See Rx Instructions .Route 01/03/23 05/22/23 Rx release .COMPLEX #90 tabs metoprolol succinate 25 mg See Rx Instructions .Route 01/24/23 05/22/23 Rx tablet,extended release 24 hr .COMPLEX #90 tabs potassium chloride 10 mEq 10 meq PO DAILY #180 tabs 02/14/23 05/22/23 Rx tablet,extended release calcium carbonate 600 mg calcium 600 mg PO DAILY 03/12/23 05/22/23 History (1,500 mg) tablet (Calcium) topiramate 25 mg capsule,extended See Rx Instructions .Route 03/12/23 05/22/23 Rx release 24 hr .COMPLEX #90 caps magnesium oxide 400 mg (241.3 mg See Rx Instructions .Route 05/16/23 05/22/23 Rx magnesium) tablet .COMPLEX #90 tabs atorvastatin 10 mg tablet See Rx Instructions .Route 05/19/23 05/22/23 Rx .COMPLEX #90 tabs scopolamine base 1 mg over 3 days 1 patch transdermal Q3D PRN Nausea 05/22/23 05/22/23 History transdermal patch (Transderm-Scop) Patient hx anesthesia problems: none Family hx anesthesia problems: none Results Review: All pre-operative results and documents have been reviewed as part of the pre-operative evaluation. [facility] Past Medical History Medical History Acute medial meniscus tear of left knee Arthritis of knee, left Asthma Chronic low back pain Ganglion cyst of volar aspect of right wrist Ganglion, right wrist GERD (gastroesophageal reflux disease) Hyperlipidemia Iliotibial band syndrome affecting left lower leg Lateral meniscus tear, current Migraine Family History Family History Mother Patient's mother is in good health Family history of diabetes mellitus in first degree relative Asthma Family history of elevated blood lipids Grandparent Family history of coronary artery disease, Onset Age: 75 Diabetes mellitus, Onset Age: 70 Father Hypertension Patient's father is in good health Other
--- NOTE | 2023-05-22 11:47 | WPDHPUPDATE1 ---
History and Physical Update Update Date/Time: 05/22/23 11:47 History and Physical has been reviewed, including an updated exam of the patient. There are NO changes in the patient's condition. Procedure as scheduled + possibe synovectomy reviewed. Risks, benefits, and alternatives have been discussed and questions answered. Patient agrees to proceed with procedure.
[2023-05-22] MEDS: ceFAZolin 2 GM/D5W 50 ML 2 GM/50 ML BAG IVPB (11:55)
[2023-05-22] MEDS: LACTATED RINGERS 1,000 ML 30 ML IV CONT (12:00)
[2023-05-22] MEDS: BUPIVACAINE/EPINEPHRINE 0.5% 50 ML VIAL 10 ML INFILTRATE (12:26)
[2023-05-22] MEDS: BUPivacaine HCL 0.25% PF 30 ML VIAL 10 ML INFILTRATE (12:27)
[2023-05-22] MEDS: fentaNYL CITRATE INJ (*CRX) 100 MCG/2 ML VIAL 25 MCG IV PUSH ×4 (13:20→13:48)
--- NOTE | 2023-05-22 13:20 | P.OP_ITS ---
Procedure Note - Detailed Date of Procedure 05/22/23 Pre-op Diagnosis Lt Knee Pain, Lt Meniscus Tear, Chondromalacia Post-op Diagnosis Same Procedure Performed Left knee arthroscopy with partial medial and lateral meniscectomy, chondropla sty, synovectomy Surgeon Félix Reyes MD Anesthesia General Indications 58-year-old woman with left knee pain mechanical symptoms. MRI demonstrates meniscus tear and chondromalacia. She has failed conservative treatment cortisone injections, physical therapy and home therapy. She presents now for operative treatment. Findings Left knee intact ACL PCL, MCL LCL. Complex degenerative type tear of the body of the lateral meniscus with unstable superior body piece. Degenerative type tear the inner white white portion of the posterior horn medial meniscus. Root intact. Grade 3 chondromalacia patellofemoral articulation, grade 2 chondromalacia femoral condyle. Lateral femoral condyle intact. Description of Procedure Informed consent given by patient. Operative extremity marked in preoperative holding area. Patient received intravenous antibiotics. Patient brought to operating room and underwent general anesthetic by anesthesia team. Positioned supine on operating room table. Left leg placed into a posterior thigh leg silva. Foot of the table dropped to 90? and right leg padded out of the field. Time-out performed confirming patient, site of surgery and plan. Left knee prepped and draped in usual sterile surgical fashion using ChloraPrep skin solution. Standard arthroscopic portals made by using a 11 blade knife for the anterior lateral portal 1st. Capsule penetrated bluntly. Camera and inflow started. The below operative findings noted. Intra-articular visualization used to position the anterior medial portal using 22 gauge spinal needle. A 11 blade knife used for the skin and blunt penetration of the capsule. 4.7 millimeter arthroscopic shaver introduced and partial medial meniscectomy of the loose and torn portion performed. Shaver then positioned in the lateral compartment and partial lateral meniscectomy performed. Edge of meniscus completed with arthroscopic Wand. Arthroscopic Wand used to perform chondroplasty of the patellofemoral articulation and the medial femoral condyle. Shaver reintroduced and a synovectomy performed of the anterior fat pad and extensive synovium as well as medial and lateral plica. Bleeding points coagulated with Wand. Knee inspected, no loose pieces noted. 1 liter of irrigant infused and suction out. Arthroscopic cannulas removed. Skin closed with 4 nylon interrupted suture. Local anesthetic with 0.25% Marcaine. Estimated Blood Loss 5 Tourniquet Time 0 Drains No Packing No Pathology None sent Complications None Condition Stable Disposition PACU [facility] Billing Surgery - Charge Forward: Surgery Billing ([id number], [id number])
== END 2023-05-22 14:57 | disposition home or self-care (01) ==
PROVIDERS: PCP Physician Assistant; Visit Provider Orthopaedic Surgery
PROC: (CPT 29870; principal; 2023-05-22 12:00)
DX: S83.232A Complex tear of medial meniscus, current injury, left knee, initial encounter (principal); S83.272A Complex tear of lateral meniscus, current injury, left knee, initial encounter; M22.42 Chondromalacia patellae, left knee; M65.862 Other synovitis and tenosynovitis, left lower leg; X58.XXXA Exposure to other specified factors, initial encounter; J45.909 Unspecified asthma, uncomplicated; E78.5 Hyperlipidemia, unspecified; K21.9 Gastro-esophageal reflux disease without esophagitis; E66.9 Obesity, unspecified; Z68.30 Body mass index [BMI] 30.0-30.9, adult; Z79.51 Long term (current) use of inhaled steroids
CPT/HCPCS: 29880; A9270; J0690; J1100; J1200; J1885; J2250; J2371; J2405; J2704; J3010; J7120

== ENCOUNTER 2023-07-15 10:05 | Outpatient (CLI) | payer BC, SELFPAY ==
--- NOTE | ~2023-07-15 | US_ITS ---
EXAMINATION:US venous doppler LE BI INDICATION:Leg swelling. Recent knee surgery. TECHNIQUE: Multiple grayscale, color flow and Doppler images of the right and left lower extremity de ep venous systems were obtained and reviewed. COMPARISON:No prior studies for comparison. FINDINGS: The common femoral, superficial femoral and popliteal veins demonstrate normal respiratory variation, augmentation and compressibility. Color flow is also seen within the posterior tibial, pe roneal, greater saphenous and profunda veins. There is nonspecific fluid surrounding the left knee. IMPRESSION: 1: No lower extremity deep venous thrombosis. Reviewed, dictated and finalized at location L. FARMER
== END 2023-07-15 10:06 | disposition home or self-care (01) ==
PROVIDERS: PCP Physician Assistant; Visit Provider Orthopaedic Surgery
DX: I82.403 Acute embolism and thrombosis of unspecified deep veins of lower extremity, bilateral (principal)
CPT/HCPCS: 93970

== ENCOUNTER 2023-11-28 10:30 | Outpatient (CLI) | payer BC, SELFPAY ==
--- NOTE | ~2023-11-28 | CT_ITS ---
Non-contrast Head CT History: Headache Technique: Axial non-contrast imaging of the brain was performed. Dose reduction technique was used on this scan by utilizing automated exposure control and iterative reconstruction technique. The dose -length product (DLP) was 599.57 mGy-cm. Findings: There is no evidence of intracranial hemorrhage, mass lesion, or acute infarct. Brain par enchyma appears normal. The ventricles and subarachnoid spaces are normal in size. The calvarium ap pears normal. The visualized paranasal sinuses and mastoid air cells are clear. Impression: No significant abnormality seen. Reviewed, dictated and finalized at location . Impression: No significant abnormality seen.
== END 2023-11-28 10:31 ==
LOC: MICIMG 10:31
PROVIDERS: PCP Student in an Organized Health Care Education/Training Program; Visit Provider Student in an Organized Health Care Education/Training Program
DX: R51.9 Headache, unspecified (principal)
CPT/HCPCS: 70450

== ENCOUNTER 2024-04-30 08:18 | Outpatient (CLI) | payer BC, SELFPAY ==
--- NOTE | ~2024-04-30 | US_ITS ---
Limited Abdominal Sonogram: Real-time sonographic imaging of the right upper quadrant was performed. Clinical History: Right upper quadrant pain Findings: The liver appears normal with no evidence of mass lesion or bile duct dilatation. Main por mary vein demonstrates normal direction of flow. The gallbladder is well distended, and appears normal with no evidence of gallstone or wall thickening. The common bile duct measures 4 mm. The visualize d pancreas, aorta, and IVC are unremarkable. Right kidney measures 11.6 cm in length, without hydrone phrosis or visualized stone. Impression: No significant abnormality seen. Reviewed, dictated and finalized at location . Impression: No significant abnormality seen.
== END 2024-04-30 08:19 | disposition home or self-care (01) ==
LOC: MICIMG 08:19
PROVIDERS: PCP Internal Medicine; Visit Provider Internal Medicine
DX: R10.11 Right upper quadrant pain (principal)
CPT/HCPCS: 76705

== ENCOUNTER 2024-09-15 15:22 | Outpatient (CLI) | payer BC, SELFPAY ==
--- NOTE | ~2024-09-15 | XR_ITS ---
HISTORY: M25.559 - Pain in unspecified hip COMPARISON: None TECHNIQUE: 2 views of the right hip. FINDINGS: No acute fracture or dislocation is identified. Superior lateral sclerosis of the femoral acetabular joint space is present, consistent with osteoart hritis. Joint space narrowing detected within the right SI joint with sclerosis. Age-appropriate mineralization. IMPRESSION: Degenerative disease without acute fracture or dislocation Reviewed, dictated and finalized at location A. [employer]
== END 2024-09-15 15:23 | disposition home or self-care (01) ==
LOC: MICIMG 15:23
PROVIDERS: PCP Internal Medicine; Visit Provider Nurse Practitioner
DX: M16.11 Unilateral primary osteoarthritis, right hip (principal)
CPT/HCPCS: 73502

== ENCOUNTER 2024-10-05 00:50 | Day surgery (SDC) | payer BC, SELFPAY ==
[2024-09-20 13:39] VITALS: BMI 30.2
--- OUTSIDE RECORDS SUMMARY | 2024-10-05 00:53 | XMS_ITS | Clinical Summary ---
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 Surgical History Surgery Date Site/Laterality Comments BREAST BIOPSY 11/20/2020 Left Family History Medical History Relation Name Comments Arthritis Father Family history of arthritis - (Added by TW Conv) Hypertension Father Family history of hypertension - (Added by TW Conv) Kidney disease Father Family histor y of kidney disease - (Added by TW Conv) Arthritis Mother Family history of arthritis - (Added by TW Conv) Diabetes Mother Family history of diabetes mellitus - (Added by TW Conv) Lung disease Mother Family history of lung disease - (Added by TW Conv) Relation Name Status Comments Father Mother Social History Tobacco Use Types Packs/Day Years Used Date Smoking Tobacco: Never Personal Safety Answer Date Recorded Getting School Help Needed Not on file 10/23 Comments Unknown Sex and Gender Information Value Date Recorded Sex Assigned at Not on file Legal Sex Female 1:47 AM JAVA TECH Gender Identity Not on file Sexual Orientation Not on file Obstetrics History Last Filed Vital Signs Vital Sign Reading Time Taken Comments Blood Pressure 114/70 10/26/2015 1:30 PM CDT Pulse 74 10/26/2015 1:30 PM CDT Temperature - - Respiratory Rate - - Oxygen Saturation 99% 10/26/2015 1: 30 PM CDT Inhaled Oxygen Concentration - - Weight 83.9 kg (184 lb 15.5 oz) 021 10:39 AM JAVA TECH Height 172.7 cm (5' 8 ) 07/09/2021 10:3 9 AM JAVA TECH Body Mass Index 28.12 07/09/2021 10:39 AM JAVA TECH Plan of Treatment Health Maintenance Due Date Last Done Comments Cervical Cancer Screening 1966 Colon Cancer Screening-Colonoscopy 1966 Depression Screening 1966 Hepatitis C Screening 1966 DTaP/Tdap/Td Vaccine (1 - Tdap) 1977 Regular Well Visit/Exam 18-64 1984 Zoster Vaccine (1 of 2) 2016 Influenza Vaccine (#1) 2024 , 05/19/2019, 05/07/2017, Additional history exists Breast Cancer Screening-Mammogram 05/19/2025 05/19/2024, 02/14/2023, 02/14/2023, Additional history exists Hepatitis B Screening Completed 10/29/2015, 015 Pneumococcal vaccine <65 Aged Out No longer eligible based on patient's age to complete this topic Medical Devices Implanted Type Area Mortgage Closer Device Identifier Shelf Expiration Date Model / Serial / Lot Orif Rt Foot-12/20/1991 Implanted:12/19 (Quantity not on file) Right: Foot Procedures Procedure Name Priority Date/Time Associated Diagnosis Comments SCREENING MAMMOGRAM BILATERAL W CHATO Schedule Routine, Read Routine (OP Routine) 05/19/2024 12:06 PM CDT Screening mammogram, encounter for from Last 3 Months or Most Recently Relevant to Health Maintenance Results * Screening Mammogram Bilateral W Chato (05/19/2024 12:06 PM CDT) Anatomical Region Laterality Modality Breast Bilateral Mammography Narrative 05/20/2024 10:01 AM CDT Mammogram Technique: Bilateral Digital Breast Tomosynthesis, Bilateral C-view 2D Screening mammogram. Views obtained: bilateral craniocaudal and bilateral mediolateral oblique. Computer Aided Detection was performed. Mammogram Findings: The present examination has been compared to prior imaging studies performed on 11/02/2020, and at [facility] on 07/09/2021 and 02/14/2023. The breasts are heterogeneously dense, which may obscure small masses. There are multiple masses in the right breast. There are no significant changes from the prior study. There is no suspicious abnormality in either breast. Impression: There is no mammographic evidence of malignancy. Annual screening mammography is recommended. If supplemental screening is desired, breast MRI would be recommended in this patient with heterogeneously dense breasts. OVERALL FINAL ASSESSMENT: BI-RADS CATEGORY 2: Benign. Procedure Note Cyndy Freeman MD - 05/20/2024 Mammogram Technique: Bilateral Digital Breast Tomosynthesis, Bilateral C-view 2D Screening mammogram. Views obtained: bilateral craniocaudal and bilateral mediolateral oblique. Computer Aided Detection was performed. Mammogram Findings: The present examination has been compared to prior imaging studies performed on 11/02/2020, and at [facility] on 07/09/2021 and 02/14/2023. The breasts are heterogeneously dense, which may obscure small masses. There are multiple masses in the right breast. There are no significant changes from the prior study. There is no suspicious abnormality in either breast. Impression: There is no mammographic evidence of malignancy. Annual screening mammography is recommended. If supplemental screeningis desired, breast MRI would be recommended in this patient with heterogeneously dense breasts. OVERALL FINAL ASSESSMENT: BI-RADS CATEGORY 2: Benign. us Self Screening Mammogram IMG MAMMO PROCEDURES Fi nal Result from Last 3 Months or Most Recently Relevant to Health Maintenance Insurance ANTHEM ACCESS CHOICE Member Subscriber Plan / Payer (Ef fective 2020-Present) Name:Maribel Marie Member ID:[id number] Relation to Subscriber:Not on file Subscriber ID:Not on file Payer ID:[id number] (NAIC) Type:[employer] Address: [address] [facility] Care Teams Chinese Teacher Relationship Specialty Start Date End Date Krzysztof Martines MD [address] [place] [address] PCP - General 11/22/16
--- OUTSIDE RECORDS SUMMARY | 2024-10-05 00:53 | XMS_ITS | Continuity of Care Document ---
Author Organization [facility] Address [address] [place] [address] [address] [place] [address] Phone Care Team Providers Care Pin Ticket Machine Operator Name Role Phone Michel PT, Jace PISANO Unavailable Unavailable Procedures Procedure Date Progress Note Therapeutic Activities Therapeutic Activities Therapeutic Activities Therapeutic Activities Progress Note Therapeutic Activities Neuromuscular Re-Ed Therapeutic Exercise Therapeutic Activities Neuromuscular Re-Ed Therapeutic Exercise Therapeutic Activities Neuromuscular Re-Ed Therapeutic Exercise Therapeutic Activities Neuromuscular Re-Ed Therapeutic Exercise Therapeutic Activities Neuromuscular Re-Ed Therapeutic Exercise Therapeutic Activities Neuromuscular Re-Ed Therapeutic Exercise Therapeutic Activities Neuromuscular Re-Ed Therapeutic Exercise Therapeutic Activities Neuromuscular Re-Ed Therapeutic Exercise Therapeutic Activities Neuromuscular Re-Ed Therapeutic Exercise Progress Note Therapeutic Activities Neuromuscular Re-Ed Therapeutic Exercise Therapeutic Activities Neuromuscular Re-Ed Therapeutic Exercise Therapeutic Activities Neuromuscular Re-Ed Therapeutic Exercise Therapeutic Activities Neuromuscular Re-Ed Therapeutic Exercise Therapeutic Activities Neuromuscular Re-Ed Therapeutic Exercise Therapeutic Activities Neuromuscular Re-Ed Therapeutic Exercise Therapeutic Activities Neuromuscular Re-Ed Therapeutic Exercise PT Evaluation Moderate Complexity Therapeutic Activities Neuromuscular Re-Ed Therapeutic Exercise OT EVALUATION THERAPEUTIC EXERCISES ORTHOTIC FITTING Advance Directives Directive Yes / No Effective Date File Name No Information Encounters Encounter Description Practice Location Reason(s) For Visit Diagnoses Date Provider Providers Copied on Encounter [facility] [employer] [facility], [place], [place], [id number], tel:[phone] [place] No Information 4 Michel Mccormick. . [facility] [employer] [place], [id number], tel:[phone] [place] No Information 4 Michel Mccormick. . Referring Provider: Félix Reyes [address] [facility] [address], [place], [address]. [facility] [employer] [address], [place], [place], [id number], tel:[phone] [place] No Information 4 Michel Mccormick. . Referring Provider: Félix Reyes [address] [facility] [address], [place], [address]. [facility], [place], [place], [address], [place] tel:[phone] [place] No Information 4 Klahn Jace. . Referring Provider: Félix Reyes, [address] [place] [address] [address], [place], [address]. [facility], [address], [place], [place], [address], [place] tel:[phone] [place] No Information 4 Klahn Jace. . Referring Provider: Félix Reyes, [address] [place] [address] [address], [place], [address]. [facility], [address], [place], [place], [address], [place] tel:[phone] [place] No Information 4 Kln Jace. . Referring Provider: Félix Reyes, [address] [place] [address] [address], [place], [address]. [facility], [address], [place], [place], [address], [place] tel:[phone] [place] No Information 4 Kln Jace. . Referring Provider: Félix Reyes, [address] [place] [address] [address], [place], [address]. [facility], [address], [place], [place], [address], [place] tel:[phone] [place] No Information 4 Kln Jace. . Referring Provider: Félix Reyes, [address] [place] [address] [address], [place], [address]. [facility], [address] [place] [address], [place], [place], [address], [place] tel:[phone] [place] No Information 3 Klahn Jace. . Referring Provider: Félix Reyes, [address] [place] [address] [address], [place], [address]. [facility], [address], [place], [place], [address], [place] tel:[phone] [place] No Information 3 Klahn Jace. . Referring Provider: Félix Reyes, [address] [place] [address] [address], [place], [address]. [facility], [address], [place], [place], [address], [place] tel:[phone] [place] No Information 3 Klahn Jace. . Referring Provider: Félix Reyes, [address] [place] [address] [address], [place], [address]. [facility], [address], [place], [place], [address], [place] tel:[phone] [place] No Information 3 Klahn Jace. . Referring Provider: Félix Reyes, [address] [place] [address] [address], [place], [address]. [facility] [address] [facility] [address], [place], [place], [address], [place] tel:[phone] [place] No Information 3 3 Klahn Jace. . Referring Provider: Félix Reyes, [address] [place] [address] [address], [place], [address]. [facility] [address] [facility] [address] [facility] [address], [place], [place], [address], [place] tel:[phone] [place] No Information 3 Klahn Jace. . Referring Provider: Félix Reyes [address] [place] [address] [address], [place], [address]. [facility], [address], [place], [place], [address], [place] tel:[phone] [place] No Information 2 3 Klahn Jace. . Referring Provider: Félix Reyes, [address] [place] [address] [address], [place], [address]. [facility] [address], [place], [place], [address], [place] tel:[phone] [place] No Information 3 Klahn Jace. . Referring Provider: Félix Reyes [address] [place] [address] [address], [place], [address]. [facility] [address] [facility], [place], [place], [address], [place] tel:[phone] [place] No Information Nov-1 3-202 3 Klahn Jace. . Referring Provider: Félix Reyes, [address] [place] [address] [address], [place], [address]. [facility] [address] [facility] [address], [place], [place], [address], [place] tel:[phone] [place] No Information Nov-0 9-202 3 Klahn Jace. . Referring Provider: Félix Reyes, [address] [place] [address] [address], [place], [address]. [facility] [address] [facility] [address], [place], [place], [address], [place] tel:[phone] [place] No Information Nov-0 6-202 3 Klahn Jace. . Referring Provider: Félix Reyes, [address] [place] [address] [address], [place], [address]. [facility], [address] [facility] [address], [place], [place], [address], [place] tel:[phone] [place] No Information Nov-0 2-202 3 Klahn Jace. . Referring Provider: Félix Reyes, [address] [place] [address] [address], [place], [address]. [facility] [address] [facility] [address], [place], [place], [address], [place] tel:[phone] [place] No Information Oct-3 0-202 3 Klahn Jace. . Referring Provider: Félix Reyes, [address] [place] [address] [address], [place], [address]. [facility] [address] [facility] [address], [place], [place], [address], [place] tel:[phone] [place] No Information Oct-2 7-202 3 Klahn Jace. . Referring Provider: Félix Reyes [address] [place] [address] [address], [place], [address]. [facility] [facility] [address], [place], [place], [address], [place] tel:[phone] [place] Pain in left finger(s)Rec urrent dislocation, left finger Ovi-0 [address]. [address] [facility], [address], [place], [address], [place]. tel:[phone] Referring Provider: Félix Reyes, [address] [facility] [address], [place], [address]. Family History Family Member Type Diagnosis Age At Onset No Information Payers Payer name Insurance type Covered constitution party ID Authorcristhiana jaime(s) [facility] [id number] Social History Type Description Quantity Date Captured Comments Sex Female Smoking Status No Information Chief Complaint And Reason For Visit No Information Reason For Referral Reason For Referral No Information History Of Present Illness Encounter Date Complaint History Of Prese nt Illness No Information Functional Status Date Functional Assessmen t No Information Instructions Date Instruction Additional Infor ryan Giving encouragement to exercise Related to Overweight Giving encouragement to exercise Related to Overweight Assessments Type Assessment Date No Information Patient Care Teams Name Effective Dates (start - stop) Status Members No Information
--- OUTSIDE RECORDS SUMMARY | 2024-10-05 00:53 | XMS_ITS | Clinical Summary ---
Author Organization [facility] Address [facility] [place] [address] Care Team Providers Care Pharm Spec Name Role Phone Krzysztof Martines MD Primary Care Provider [phone] Allergies Active Allergy Reactions Criticality Noted Date Comments Tape Rash Low 05/07/2024 Erythromycin Tachycardia High 05/07/2024 Macrolides And Ketolides Other (see comment),Rash Low 10/06/2021 BP drop and loss of hearing Naproxen Anaphylaxis High 05/07/2024 Thimerosal (Thiomersal) Hives,Itching,Sw ellin g 06/07/2024 Medications pantoprazole EC (PROTONIX) 40 MG tablet Take 1 tablet (40 mg total) by mouth daily. Active Magnesium Oxide (MAG-OX 400 OR) Take 1 tablet by mouth daily. Active metoprolol succinate ER (TOPROL-XL) 25 MG 24 hr tablet Take 1 tablet (25 mg total) by mouth nightly. Active rimegepant (NURTEC) 75 MG disintegrating tablet Take 1 tablet (75 mg total) by mouth as needed. Max of 1 tablet (75 mg) in 24 hours. Active atorvastatin (LIPITOR) 10 MG tablet Take 1 tablet (10 mg total) by mouth nightly at bedtime. Active Cholecalciferol (VITAMIN D3) 125 MCG (5000 UT) Chew Tab Chew 1 capsule by mouth daily. Active triamterene-hydroCH LOROthiazide (DYAZIDE) 37.5-25 MG capsule Take 0.5 capsules by mouth daily. Pt 1/2 tab am Active topiramate (TOPAMAX) 25 MG tablet Take 1 tablet (25 mg total) by mouth daily. Active lansoprazole (PREVACID) 30 MG capsule Take 1 capsule (30 mg total) by mouth after dinner. Active famotidine (PEPCID) 40 MG tablet Take 1 tablet (40 mg total) by mouth nightly. Active gabapentin (NEURONTIN) 100 MG capsule Take 1 capsule (100 mg total) by mouth 2 (two) times a day. Active cetirizine (ZYRTEC) 10 MG tablet Take 1 tablet (10 mg total) by mouth daily. Active potassium chloride CR (K-TAB) 10 MEQ Tab CR tablet Take 1 tablet (10 mEq total) by mouth daily. 4 Active Potassium Chloride 10 MEQ Pack 1 tablet by Other route daily. Active SUMAtriptan (IMITREX) 50 MG tablet Take 1 tablet (50 mg total) by mouth 2 (two) times daily as needed for Migraine. Max of 4 tablets (200 mg) in 24 hours. Active Active Problems Problem Noted Date Diagnosed Date Primary osteoarthritis of left knee 06/07/2024 Encounters Date Type Department Care Team Description 10/04/2024 9:45 AM CULINARY ASSISTANT Hospital Encounter [facility] [address] [place] [address] Tangela Gordon Jr., DO Arrived 10/04/2024 9:45 AM CULINARY ASSISTANT Office Visit [address] [address] Tangela Gordon Jr., Hip Pain (RIGHT - DOI: 09/12/2024) 10/04/2024 Travel 09/23/2024 Orders Only [address] [address] Tangela Gordon Jr., DO from Last 3 Months Social History Tobacco Use Types Packs/Day Years Used Date Smoking Tobacco: Never Smokeless Tobacco: Never Tobacco Cessation:Counseling Given: Not Answered Alcohol Use Standard Drinks/Week Comments Yes 0 (1 standard drink = 0.6 oz pur e alcohol) Socially Comments Unknown Sex and Gender Information Value Date Recorded Sex Assigned at Female 10/04/2024 9:49 AM CULINARY ASSISTANT Legal Sex Female 7:01 PM CDT Gender Identity Not on file Sexual Orientation Not on file Last Filed Vital Signs Vital Sign Reading Time Taken Comments Blood Pressure 117/50 05/13/2024 10:55 AM CDT Pulse 70 05/13/2024 10:55 AM CDT Temperature 36.7 C (98.1 F) 05/13/2024 10:55 AM CDT Respiratory Rate 18 05/13/2024 10:55 AM CDT Oxygen Saturation 97% 05/13/2024 10:55 AM CDT Inhaled Oxygen Concentration - - Weight 92.1 kg (203 lb) 10/04/2024 9:51 AM CULINARY ASSISTANT Height 172.7 cm (5' 8 ) 10/04/2024 9:51 AM CULINARY ASSISTANT Body Mass Index 30.87 10/04/2024 9:51 AM CULINARY ASSISTANT Plan of Treatment Upcoming Encounters Date Type Department Care Team (Late st Contact Info) Description 11/01/2024 10:00 AM CDT Office Visit [address] [address] Tangela Gordon Jr., DO [address] [place] [address] Health Maintenance Due Date Last Done Comments Colorectal Cancer Screening Colonoscopy (10 Years) 1966 Annual Physical 1969 Hepatitis C 1984 DTaP, Tdap and Td Vaccines (1 - Tdap) 1985 Hepatitis B Vaccines (1 of 3 - 19+ 3-dose series) 1985 Zoster Vaccines (1 of 2) 2016 COVID-19 Vaccine ( season) 2024 05/21/2022, 12/03/2021, 04/09/2021, Additional history exists Influenza Adult (#1) 2024 06/25/2023, 05/21/2022, 05/29/2021, Additional history exists Mammogram Screening 05/19/2026 05/19/2024, 02/14/2023, 07/09/2021 Meningococcal B Vaccine Aged Out No l onger eligible based on patient's age to complete this topic Meningococcal Vaccine Aged Out No behzad linda eligible based on patient's age to complete this topic Pneumococcal Vaccine: Pediatrics (0 to 5 Years) and At-Risk Patients (6 to 64 Years) Aged Out No longer eligible based on patient's age to complete this topic RSV Immunizations Under 20 Months Aged Out No longer eligible based on patient's age to complete this topic Medical Devices Explanted Type Area Senior Materials Analyst Device Identifier Shelf Expiration Date Model / Serial / Lot K Wire Nellie 9 In X .045 In - [id number] Explanted:Qty: 1 on 05/13/2024 by Wili Ann MD at [facility] Wire Right: Wrist [employer] [id number] / / NA Procedures Procedure Name Priority Date/Time Associated Diagnosis Comments XR PELVIS 1 OR 2 VIEWS Routine 10/04/2024 10:00 AM CULINARY ASSISTANT Right hip pain from Last 3 Months Results * XR PELVIS 1 OR 2 VIEWS (10/04/2024 10:00 AM CULINARY ASSISTANT) Anatomical Region Laterality Modality Pelvis Radiographic Keiry ging 10/04/2024 11:0 5 AM CULINARY ASSISTANT Impressions 10/04/2024 11:06 AM CULINARY ASSISTANT IMPRESSION: 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 Ordered By: TANGELA ARNDT V Interpreted By: Demario Lara MD, 10/04/2024 11:05 AM Narrative 10/04/2024 11:06 AM CULINARY ASSISTANT [address] [place] [id number] Procedure(s): XR PELVIS 1 OR 2 VIEWS Date of service: 10/04/2024 10:00 AM Provided clinical information: 59 years, Female, right hip pain Procedure and materials: AP pelvis Comparison studies: May 27, 2018. Findings: Bony pelvis is intact without evidence of fracture or dislocation. Muscular cysts is present about the acetabulum bilaterally left greater than right. Findings are similar as compared May 2018. Procedure Note Demario Lara MD - 10/04/[address] [place] [id number] Procedure(s): XR PELVIS 1 OR 2 VIEWS Date of service: 10/04/2024 10:00 AM Provided clinical information: 59 years, Female, right hip pain Procedure and materials: AP pelvis Comparison studies: May 27, 2018. Findings: Bony pelvis is intact without evidence of fracture or dislocation.Muscular cysts is present about the acetabulum bilaterally left greaterthan right. Findings are similar as compared May 2018. IMPRESSION: Sclerosis is present about the femoral acetabular joints bilaterally, leftgreater than right. Ordered By: TANGELA ARNDT V Interpreted By: Demario Lara MD, 10/04/2024 11:05 AM us Tangela Gordon Jr., DO GENERAL IMAGING Final Re sult from Last 3 Months Insurance [facility] Care Teams Pharm Spec Relationship Specialty Start Date End Date Krzysztof Martines MD [address] [place] [address] PCP - General INTERNAL MEDICINE 10/04/24
--- OUTSIDE RECORDS SUMMARY | 2024-10-05 00:53 | XMS_ITS | Encounter Summary ---
Author Organization [facility] Address [address] [place] [address] Care Team Providers Care Medical Resident Name Role Phone Krzysztof Martines MD Primary Care Provider [phone] Encounter Details Date Type Department Care Team (Latest Contact Info) Description 10/04/2024 Travel Social History Tobacco Use Types Packs/Day Years Used Date Smoking Tobacco: Never Smokeless Tobacco: Never Alcohol Use Standard Drinks/Week Comments Yes 0 (1 standard drink = 0.6 oz pur e alcohol) Socially Comments Unknown Sex and Gender Information Value Date Recorded Sex Assigned at Female 10/04/2024 9:49 AM MACHINIST INSTRUCTOR Legal Sex Female 7:01 PM CDT Gender Identity Not on file Sexual Orientation Not on file documented as of this encounter Functional Status * Are you deaf or do you have serious difficulty hearing Answer Date of Assessment Author Status No 05/13/2024 6:52 AM FARAZT Sasha Rutledge RN Active * Are you blind or do you have serious difficulty seeing, even when wearing glasses? Answer Date of Assessment Author Status No 05/13/2024 6:52 AM FARAZT Sasha Rutledge RN Active * Do you have serious difficulty walking or climbing stairs? Answer Date of Assessment Author Status No 05/13/2024 6:52 AM FARAZT Sasha Rutledge RN Active * Do you have difficulty dressing or bathing? Answer Date of Assessment Author Status No 05/13/2024 6:52 AM FARAZT Sasha Rutledge RN Active * Because of a physical, mental, or emotional condition, do you have difficulty doing errands alone such as visiting a doctor's office or shopping? Answer Date of Assessment Author Status No 05/13/2024 6:52 AM CDT Sasha Rutledge, RN Active documented as of this encounter Mental Status * Because of a physical, mental, or emotional condition, do you have serious difficulty concentrating, remembering, or making decisions? Answer Entry Date Author Status No 05/13/2024 6:52 AM CDT Sasha Rutledge RN Active documented in this encounter Plan of Treatment Upcoming Encounters Date Type Department Care Team (Late st Contact Info) Description 11/01/2024 10:00 AM CDT Office Visit [facility] [place] [address] [facility] 1 [place] [address] Wellington Gordon Jr., DO [address] [place] [address] documented as of this encounter Visit Diagnoses Not on filedocumented in this encounter Care Teams Medical Resident Relationship Specialty Start Date End Date Krzysztof Martines MD [address] [place] [address] PCP - General INTERNAL MEDICINE 10/04/24 documented as of this encounter
--- OUTSIDE RECORDS SUMMARY | 2024-10-05 00:53 | XMS_ITS | Encounter Summary ---
Author Organization [facility] Address [address] [place] [address] Care Team Providers Care Umbrella Finisher Name Role Phone Krzysztof Martines MD Primary Care Provider Encounter Details Date Type Department Care Team (Late st Contact Info) Description 10/04/2024 9:45 AM DISTRIBUTION MANAGER Hospital Encounter [facility] [address] [place], [place] [id number] Tangela Gordon Jr., DO [address] [place] [address] Arrived Social History Tobacco Use Types Packs/Day Years Used Date Smoking Tobacco: Never Smokeless Tobacco: Never Alcohol Use Standard Drinks/Week Comments Yes 0 (1 standard drink = 0.6 oz pur e alcohol) Socially Comments Unknown Sex and Gender Information Value Date Recorded Sex Assigned at Female 10/04/2024 9:49 AM DISTRIBUTION MANAGER Legal Sex Female 7:01 PM CDT Gender Identity Not on file Sexual Orientation Not on file documented as of this encounter Functional Status * Are you deaf or do you have serious difficulty hearing Answer Date of Assessment Author Status No 05/13/2024 6:52 AM Sasha Alonzo RN Active * Are you blind or do you have serious difficulty seeing, even when wearing glasses? Answer Date of Assessment Author Status No 05/13/2024 6:52 AM Sasha Alonzo RN Active * Do you have serious difficulty walking or climbing stairs? Answer Date of Assessment Author Status No 05/13/2024 6:52 AM Sasha Alonzo RN Active * Do you have difficulty dressing or bathing? Answer Date of Assessment Author Status No 05/13/2024 6:52 AM CDT Sasha Rutledge RN Active * Because of a physical, mental, or emotional condition, do you have difficulty doing errands alone such as visiting a doctor's office or shopping? Answer Date of Assessment Author Status No 05/13/2024 6:52 AM CDT Sasha Rutledge RN Active documented as of this encounter [...] Description 11/01/2024 10:00 AM CDT Office Visit [facility] [id number] Tangela Gordon Jr., DO [address] [place] [address] documented as of this encounter Procedures Procedure Name Priority Date/Time Associated Diagnosis Comments XR PELVIS 1 OR 2 VIEWS Routine 10/04/2024 10:00 AM DISTRIBUTION MANAGER Right hip pain documented in this encounter Results * XR PELVIS 1 OR 2 VIEWS (10/04/2024 10:00 AM DISTRIBUTION MANAGER) Anatomical Region Laterality Modality Pelvis Radiographic Keiry ging 10/04/2024 11:0 5 AM DISTRIBUTION MANAGER Impressions 10/04/2024 11:06 AM DISTRIBUTION MANAGER IMPRESSION: 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 Ordered By: TANGELA ARNDT V Interpreted By: Demario Lara MD, 10/04/2024 11:05 AM Narrative 10/04/2024 11:06 AM DISTRIBUTION MANAGER [address] [place] [address] Procedure(s): XR PELVIS 1 OR 2 VIEWS [...] Note Demario Lara MD - 10/04/[address] [place] [address] Procedure(s): XR PELVIS 1 OR 2 VIEWS [...] Jr., DO GENERAL IMAGING Final Re sult documented in this encounter Visit Diagnoses Diagnosis Right hip pain Pain in joint, pelvic region and thigh documented in this encounter Care Teams Umbrella Finisher Relationship Specialty Start Date End Date Krzysztof Martines MD [address] [place] [address] PCP - General INTERNAL MEDICINE 10/04/24 documented as of this encounter
--- OUTSIDE RECORDS SUMMARY | 2024-10-05 00:53 | XMS_ITS | Referral Summary ---
Author Organization [facility] Address [address] [place] [address] Care Team Providers Care Implementation Coordinator Name Role Phone Connor Marie MD Primary Care Provider [phone] Krzysztof Martines DO Unavailable [phone] Source Comments [facility],non-owned Affiliates and Associated Physician Practices is amultiple site organization consisting of ambulatory clinics and hospital sitesin [place], [place], [place] and [place]. This disclosure is being madepursuant to the Care Everywhere program and may not contain all information available regarding this patient. Last updated 18.[email or web address] [email or web address] Immunizations Name Administration Dates Next Due FLU VACCINE QUAD IIV4 PF ID 05/28/2016 Social History Tobacco Use Types Packs/Day Years Used Date Smoking Tobacco: Never Assessed Sex and Gender Information Value Date Recorded Sex Assigned at Not on file Gender Identity Not on file Sexual Orientation Not on file Plan of Treatment Not on file Care Teams Implementation Coordinator Relationship Specialty Start Date End Date Connor Marie MD [address] [place] [address] PCP - General 01/23/21 Krzysztof Martines DO [address] [facility] [address] [place] [address] Internal Medicine 01/23/21
--- OUTSIDE RECORDS SUMMARY | 2024-10-05 00:53 | XMS_ITS | Encounter Summary ---
Author Organization [facility] Address [address] [facility] [place] [address] Care Team Providers Care Wallpaper Consultant Name Role Phone Connor Marie MD Primary Care Provider [phone] Krzysztof Martines DO Unavailable [phone] Encounter Details Date Type Department Care Team (Late st Contact Info) Description 05/24/2021 Lab Requisition [facility] [address] [facility] [place] [address] Danny Cantor MD [address] [place] [address] Social History Tobacco Use Types Packs/Day Years Used Date Smoking Tobacco: Never Assessed Sex and Gender Information Value Date Recorded Sex Assigned at Not on file Gender Identity Not on file Sexual Orientation Not on file documented as of this encounter Plan of Treatment Not on file documented as of this encounter Procedures Procedure Name Priority Date/Time Associated Diagnosis Comments DERMATOPATHOLOGY Routine 05/22/2021 12:0 0 AM CDT documented in this encounter Results * DERMATOPATHOLOGY (05/22/2021 12:00 AM CDT) Case Report Dermatopathology Report Case: [id number] Authorizing Provider: Danny Cantor MD Collected: 05/22/2021 12:00 AM Ordering Location: [facility] Received: 05/24/2021 08:15 AM Pathologist: Mirna Eastman MD Specimens: A) - Skin, right superior inner thigh B) - Skin, left superior inner thigh 5:21 PM CDT DERMATOPATHOLOGY LABORATORY Final Diagnosis Specimen A. 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 5:21 PM [facility] DERMATOPATHOLOGY LABORATORY Gross Description Specimen A: Received is one formalin filled container labeled with the patient's name and designated right superior inner thigh. The specimen consists of a punch biopsy measuring [id number], bisected. Jar 0. Specimen B: Received is one formalin filled container labeled with the patient's name and designated left superior inner thigh. The specimen consists of a punch biopsy measuring [id number], bisected. Jar 0. 5:21 PM [facility] DERMATOPATHOLOGY LABORATORY Microscopic Description Specimen A. SKIN, right superior inner thigh: The histologic features in specimens A and B are similar. There are lymphocytes around blood vessels and histiocytes between collagen bundles some of which are arranged in a palisade. The collagen is focally altered. The hematoxylin and eosin stain is reviewed; histochemical stains are performed to further assess the histologic features. Grocott's methenamine silver (GMS) stain fails to highlight fungal elements in the available sections. JERALD stain is negative for acid-fast bacteria in the sections examined. Specimen B. SKIN, left superior inner thigh: See microscopic description in specimen A. 5:21 PM [facility] DERMATOPATHOLOGY LABORATORY Disclaimer An external and internal positive and negative controls are appropriate for the histochemical, immunohistochemical and immunofluorescence stain(s) in this case (if any), except where stated explicitly. The performance characteristics of the stain(s) cited in this report were developed and its performance characteristic determined by the Dermatopathology Laboratory at [facility], directed by Dr. Rita Tong. These tests need not be, and therefore are not, approved by the [place] Food and Drug Administration. The tests are used for clinical purposes. Billing Codes Specimen Charges Stain Charges 66815 55114 1 1 10790 98159 98397 56073 1 1 1 1 10/15/202 1 5:21 PM CDT DERMATOPATHOLOGY LABORATORY Embedded Images 5:21 PM CDT DERMATOPATHOLOGY LABORATORY Pathology/Cytology TISSUE SPECIMEN FROM SKIN / Unknown 05/22/2021 05/24/2021 8:15 AM CDT Miscellaneous samples (specimen) TISSUE SPECIMEN FROM SKIN / Unknown 05/22/2021 05/24/2021 8:15 AM CDT Danny Cantor MD LAB - PATHOLOGY/CYTO LOGY ORDERABLES DERMATOPATHOLOGY LABORATORY [facility] - Department of Dermatology [facility] Medicine [address] [place] [address], [address] [phone] documented in this encounter Visit Diagnoses Not on filedocumented in this encounter Care Teams Wallpaper Consultant Relationship Specialty Start Date End Date Connor Marie MD [address] [place] [address] PCP - General 01/23/21 Krzysztof Martines DO [address] [facility] [address] [place] [address] Internal Medicine 01/23/21 documented as of this encounter
--- OUTSIDE RECORDS SUMMARY | 2024-10-05 00:53 | XMS_ITS | Patient Health Summary ---
Author Organization [facility] Address [address] [facility] [place] [address] Care Team Providers Care Broadcast Supervisor Name Role Phone Connor Marie MD Primary Care Provider [phone] Conrad Krzysztof L DO Unavailable [phone] Note from [facility],non-owned Affiliates and Associated Physician Practices is amultiple site organization consisting of ambulatory clinics and hospital sitesin [place], [place], [place] and [place]. This disclosure is being madepursuant to the Care Everywhere program and may not contain all information available regarding this patient. Last updated 18.[facility] Immunizations * FLU VACCINE QUAD IIV4 PF ID(Given 05/28/2016) Social History Tobacco Use Types Packs/Day Years Used Date Smoking Tobacco: Never Assessed Sex and Gender Information Value Date Recorded Sex Assigned at Not on file Gender Identity Not on file Sexual Orientation Not on file Procedures * DERMATOPATHOLOGY(Performed 05/22/2021) Results * DERMATOPATHOLOGY (05/22/2021 12:00 AM CDT) Case Report Dermatopathology Report Case: [id number] Authorizing Provider: Danny Cantor MD Collected: 05/22/2021 12:00 AM Ordering Location: [facility] Derm[facility] Lab Received: 05/24/2021 08:15 AM Pathologist: Mirna Eastman MD Specimens: A) - Skin, right superior inner thigh B) - Skin, left superior inner thigh 5:21 PM CDT DERMATOPATHOLOGY LABORATORY Final Diagnosis Specimen A. 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 5:21 PM CDT DERMATOPATHOLOGY LABORATORY Gross Description Specimen A: Received is one formalin filled container labeled with the patient's name and designated right superior inner thigh. The specimen consists of a punch biopsy measuring [id number], bisected. Jar 0. Specimen B: Received is one formalin filled container labeled with the patient's name and designated left superior inner thigh. The specimen consists of a punch biopsy measuring [id number], bisected. Jar 0. 5:21 PM T DERMATOPATHOLOGY LABORATORY Microscopic Description Specimen A. SKIN, [...] microscopic description in specimen A. 5:21 PM T DERMATOPATHOLOGY LABORATORY Disclaimer An external and internal positive and negative controls are appropriate for the histochemical, immunohistochemical and immunofluorescence stain(s) in this case (if any), except where stated explicitly. The performance characteristics of the stain(s) cited in this report were developed and its performance characteristic determined by the Dermatopathology Laboratory at [facility], directed by Dr. Rita Tong. These tests need not be, and therefore are not, approved by the [place] Food and Drug Administration. The tests are used for clinical purposes. Billing Codes Specimen Charges Stain Charges 12980 38618 1 1 92676 77027 58037 56293 1 1 1 1 5:21 PM CDT DERMATOPATHOLOGY LABORATORY Embedded Images 5:21 PM T DERMATOPATHOLOGY LABORATORY Pathology/Cytology TISSUE SPECIMEN FROM SKIN / Unknown 05/22/2021 05/24/2021 8:15 AM CDT Miscellaneous samples (specimen) TISSUE SPECIMEN FROM SKIN / Unknown 05/22/2021 05/24/2021 8:15 AM CDT Danny Cantor MD LAB - PATHOLOGY/CYTO LOGY ORDERABLES DERMATOPATHOLOGY LABORATORY [facility] - Department of Dermatology [facility] Specialized Medicine [address] [place] [address], [address] [phone] Care Teams Broadcast Supervisor Relationship Specialty Start Date End Date Connor Marie MD [address] [place] [address] PCP - General 01/23/21 Krzysztof Martines DO [address] [facility] [address] [place] [address] Internal Medicine 01/23/21
--- OUTSIDE RECORDS SUMMARY | 2024-10-05 00:53 | XMS_ITS | Clinical Summary ---
Author Organization [facility] Address [address] [facility] [place] [address] Care Team Providers Care Head Sawyer Automatic Name Role Phone Connor Marie MD Primary Care Provider [phone] Krzysztof Martines DO Unavailable [phone] Source Comments [facility] [employer],non-owned Affiliates and Associated Physician Practices is amultiple site organization consisting of ambulatory clinics and hospital sitesin [place], [place], [place] and [place]. This disclosure is being madepursuant to the Care Everywhere program and may not contain all information available regarding this patient. Last updated 18.[facility] [employer] Immunizations Name Administration Dates Next Due FLU VACCINE QUAD IIV4 PF ID 05/28/2016 Social History Tobacco Use Types Packs/Day Years Used Date Smoking Tobacco: Never Assessed Sex and Gender Information Value Date Recorded Sex Assigned at Not on file Gender Identity Not on file Sexual Orientation Not on file Plan of Treatment Health Maintenance Due Date Last Done Comments COLOGUARD (AGES 45-75) - COL ON CA SCREENING 1966 COLON MONITORING 1966 COLONOSCOPY - COLON CA SCREENING 1966 CT COLONOGRAPHY - COLON CA SCREENING 1966 Colorectal Cancer Screening 1966 FIT - COLON CA SCREENING 1966 FLEX SIG - COLON CA SCREENING 1966 LIPID TESTING 1966 MAMMOGRAM 1966 PAP SMEAR 1966 HIV SCREENING 1981 HEPATITIS C SCREENING 03/20/1984 DTAP/TDAP/TD VACCINES (1 - Tdap) 1985 HEPATITIS B VACCINE (1 of 3 - 19+ 3-dose series) 1985 PNEUMOCOCCAL VACCINE 50+ (1 of 1 - PCV) 2016 ZOSTER VACCINE (1 of 2) 2016 COVID-19 VACCINE (2023-2 5 season) 2024 INFLUENZA VACCINE (#1) 2024 05/28/2016 DEPRESSION SCREENING 08/11/2024 HIB VACCINE Aged Out No longer eligi ble based on patient's age to complete this topic HPV VACCINE Aged Out No longer eligi ble based on patient's age to complete this topic MENINGOCOCCAL (Group B) VACCINE Aged Out No longer eligible based on patient's age to complete this topic MENINGOCOCCAL VACCINE Aged Out No behzad linda eligible based on patient's age to complete this topic PNEUMOCOCCAL VACCINE Aged Out No long er eligible based on patient's age to complete this topic Care Teams Head Sawyer Automatic Relationship Specialty Start Date End Date Connor Marie MD [address] [place] [address] PCP - General 01/23/21 Krzysztof Martines DO [address] [facility] [address] [place] [address] Internal Medicine 01/23/21
--- OUTSIDE RECORDS SUMMARY | 2024-10-05 00:53 | XMS_ITS | Encounter Summary ---
Author Organization [facility] Address [address] [place] [address] Care Team Providers Care Research Librarian Name Role Phone Doris Martines MD Primary Care Provider [phone] Reason for Referral * Physical Medicine (Routine) - New Request Specialty Diagnoses / Procedures Referred By Contlaure t Referred To Contact PHYSICAL THERAPY Diagnoses Right hip pain Procedures OFFICE/OUTPATIENT NEW LOW MDM 30-44 MINUTES OFFICE/OUTPT VISIT,NEW,LEVL IV OFFICE/OUTPT VISIT,NEW,LEVL V OFFICE/OUTPT VISIT,EST,LEVL III OFFICE/OUTPT VISIT,EST,LEVL IV OFFICE/OUTPT VISIT,EST,LEVL V Wellington Gordon Jr., [address] [place] [address] Phone: tel: fax: [facility] [address] Phone: tel: fax: Referral ID Status Reason Start Date Expiration Date Visits Requested Visits Authorized New Request Physical Therapy 10/04/2024 11/04/2025 1 1 ALS ASSISTANT Reason for Visit * Reason Comments Hip Pain RIGHT - DOI: Encounter Details Date Type Department Care Team (Latest Contact Info) Description 10/04/2024 9:45 AM APPEALS ASSISTANT Office Visit [address] [address] Wellington Gordon Jr., DO [address] [place] [address] Hip Pain (RIGHT - DOI: 09/12/2024) Social History Tobacco Use Types Packs/Day Years Used Date Smoking Tobacco: Never Smokeless Tobacco: Never Alcohol Use Standard Drinks/Week Comments Yes 0 (1 standard drink = 0.6 oz pur e alcohol) Socially Comments Unknown Sex and Gender Information Value Date Recorded Sex Assigned at Female 10/04/2024 9:49 AM APPEALS ASSISTANT Legal Sex Female 7:01 PM CDT Gender Identity Not on file Sexual Orientation Not on file documented as of this encounter Last Filed Vital Signs Vital Sign Reading Time Taken Comments Blood Pressure - - Pulse - - Temperature - - Respiratory Rate - - Oxygen Saturation - - Inhaled Oxygen Concentration - - Weight 92.1 kg (203 lb) 10/04/2024 9:51 AM APPEALS ASSISTANT Height 172.7 cm (5' 8 ) 10/04/2024 9:51 AM APPEALS ASSISTANT Body Mass Index 30.87 10/04/2024 9:51 AM APPEALS ASSISTANT documented in this encounter Functional Status * Are you [...] 6:52 AM Sasha Alonzo RN Active * Because of a physical, mental, or emotional condition, do you have difficulty doing errands alone such as visiting a doctor's office or shopping? Answer Date of Assessment Author Status No 05/13/2024 6:52 AM Sasha Alonzo RN Active documented as of this encounter Mental Status * Because of a physical, mental, or emotional condition, do you have serious difficulty concentrating, remembering, or making decisions? Answer Entry Date Author Status No 05/13/2024 6:52 AM Sasha Alonzo RN Active documented in this encounter Progress Notes * Lauren Aguirre, COMMISSARY STEWARD - 10/04/2024 9:45 AM CST Amaris is a 59-year-old female who presents for Hip Pain (RIGHT - DOI: 09/12/2024) Patient here for RIGHT hip pain. She states she tripped 09/12/2024, but did not fall, and has had increased pain since. She locates to the RIGHT groin, with occasional radiation to the lateral hip. Shereports tenderness to the groin as well. She has taken Kingston or muscle relaxer from a previous surgery and this has helped. No assistive devices. 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 [x] Referral and/or phone call to Non-[facility] facilities Vitals: 10/04/24 0951 Weight: 92.1 kg (203 lb) Height: 1.727 m (5' 8 ) Current Outpatient Medications Medication Sig atorvastatin (LIPITOR) 10 MG tablet Take 1 tablet (10 mg total) by mouth nightly at bedtime. cetirizine (ZYRTEC) 10 MG tablet Take 1 tablet (10 mg total) by mouth daily. Cholecalciferol (VITAMIN D3) 125 MCG (5000 UT) Chew Tab Chew 1 capsule by mouth daily. famotidine (PEPCID) 40 MG tablet Take 1 tablet (40 mg total) by mouth nightly. gabapentin (NEURONTIN) 100 MG capsule Take 1 capsule (100 mg total) by mouth 2 (two) times a day. lansoprazole (PREVACID) 30 MG capsule Take 1 capsule (30 mg total) by mouth after dinner. Magnesium Oxide (MAG-OX 400 OR) Take 1 tablet by mouth daily. metoprolol succinate ER (TOPROL-XL) 25 MG 24 hr tablet Take 1 tablet (25 mg total) by mouth nightly. pantoprazole EC (PROTONIX) 40 MG tablet Take 1 tablet (40 mg total) by mouth daily. potassium chloride CR (K-TAB) 10 MEQ Tab CR tablet Take 1 tablet (10 mEq total) by mouth daily. rimegepant (NURTEC) 75 MG disintegrating tablet Take 1 tablet (75 mg total) by mouth as needed. Maxof 1 tablet (75 mg) in 24 hours. SUMAtriptan (IMITREX) 50 MG tablet Take 1 tablet (50 mg total) by mouth 2 (two) times daily as needed for Migraine. Max of 4 tablets (200 mg) in 24 hours. topiramate (TOPAMAX) 25 MG tablet Take 1 tablet (25 mg total) by mouth daily. triamterene-hydroCHLOROthiazide (DYAZIDE) 37.5-25 MG capsule Take 0.5 capsules by mouth daily. Pt 1/2 tab am Potassium Chloride 10 MEQ Pack 1 tablet by Other route daily. Past Surgical History: Procedure Laterality Date APPENDECTOMY ARTHROSCOPY KNEE DIAGNOSTIC W/WO SYNOVIAL BX SPX Bilateral FOOT SURGERY Right FRACTURE SURGERY FULL ROUT OBSTE CARE, DELIV HAND SURGERY Bilateral 2017 HAND SURGERY Right 05/23/2024 Dr. Ann - Right wrist trapeziectomy with thumb CMC arthroplasty using the abductor pollicis longus HYSTERECTOMY REMOVAL OF FALLOPIAN TUBE SURG IMG ARTSCPY SHLD LT Left TONSILLECTOMY Allergies Ak-mycin [erythromycin], Naproxen, Thimerosal (thiomersal), Adhesive [tape], and Macrolides and ketolides [x] Total Thhg-wo-Feyl Assessment Time: 0-15 minutes Additional Contributory Factors NONE ALS ASSISTANT ALS ASSISTANT * Wellington Gordon Jr., DO - 10/04/2024 9:45 AM CST Images from the original note were not included. ORTHOPAEDIC SURGERY - PROGRESS NOTE Outpatient Primary Care Provider: DORIS MARTINES MD Consulting Physician: Reason for Consultation: Chief Complaint Patient presents with Hip Pain RIGHT - DOI: 09/12/2024 Assessment/Plan Amaris Marie is a 59-year-old female with the following medical problems: ICD-10-CM SNOMED CT(R) 1. Right hip pain M25.551 HIP PAIN Plan: I reviewed her x-ray and physical exam findings. I am recommending some physical therapy. I will see her back after she has completed that. If no improvement I would recommend MRI of her right hip. Physical Exam Filed Vitals: 10/04/24 0951 Weight: 92.1 kg (203 lb) Height: 1.727 m (5' 8 ) General - Alert, no acute distress. Respiratory - Non-labored respirations. Cardiovascular - Limbs are warm and well perfused. Abdomen - Soft, non-tender, non-distended. Musculoskeletal - Physical Exam Left Hip Exam Range of Motion Flexion: 90 External rotation: 20 Internal rotation: 10 Right Hip Exam Tenderness The patient is experiencing tenderness in the anterior. Range of Motion Abduction: normal Adduction: normal Extension: normal Flexion: abnormal External rotation: abnormal Internal rotation: abnormal Muscle Strength Abduction: 4/5 Adduction: 4/5 Flexion: 4/5 Tests JONATHAN: positive Niraj: negative Other Erythema: absent Scars: absent Sensation: normal Pulse: present Comments: + antalgic gait + leg length discrepency Neurological: General: No focal deficit present. Sensory: Sensation is intact. Motor: Motor function is intact. Gait: Gait is intact. Deep Tendon Reflexes: Reflexes are normal and symmetric. Pulses - 2+ pedal pulses with brisk capillary refill in the toes. Diagnostic Studies / Procedures Xray: 07/07/2018 CBC Tests WBC 6.2 RBC 5.31 HGB 15.3 HCT 46.8 MCV 88.1 MCH 28.8 MCHC 32.7 RDW 12.2 PLT 334 MPV 10.1 No data to display 07/07/2018 CMP Labs POTASSIUM S/P/B 4.0 SODIUM S/P/B 141 CHLORIDE S/P/B 106 CO2 27.6 GLUCOSE 90 BUN 16 CREATININE S/P/B 1.15 CALCIUM S/P/B 9.1 BILIRUBIN TOTAL S/P/B 0.7 ALKALINE PHOSPHATASE S/P/B 68 AST 15 ALT 26 TOTAL PROTEIN S/P/B 8.2 ALBUMIN S/P/B 4.0 ANION GAP 11.4 No results found for: CRP , ESR Chief Complaint Chief Complaint Patient presents with Hip Pain RIGHT - DOI: 09/12/2024 History of Present Illness Patient here for RIGHT hip pain. She states she tripped 09/12/2024, but did not fall, and has had increased pain since. She locates to the RIGHT groin, with occasional radiation to the lateral hip. Shereports tenderness to the groin as well. She has taken Kingston or muscle relaxer from a previous surgery and this has helped. No assistive devices. 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 Hip Pain Review of Systems Negative other than that which is mentioned in the HPI. Medical History Past Medical History: Diagnosis Date GERD (gastroesophageal reflux disease) Meniere's disease, unspecified ear Migraines Past Surgical History: Procedure Laterality Date APPENDECTOMY ARTHROSCOPY KNEE DIAGNOSTIC W/WO SYNOVIAL BX SPX Bilateral FOOT SURGERY Right FRACTURE SURGERY FULL ROUT OBSTE CARE, DELIV HAND SURGERY Bilateral 2017 HAND SURGERY Right 05/23/2024 Dr. Ann - Right wrist trapeziectomy with thumb CMC arthroplasty using the abductor pollicis longus HYSTERECTOMY REMOVAL OF FALLOPIAN TUBE SURG IMG ARTSCPY SHLD LT Left TONSILLECTOMY Review of patient's allergies indicates: Allergen Reactions Ak-Mycin [Erythromycin] Tachycardia Naproxen Anaphylaxis Thimerosal (Thiomersal) Hives, Itching and Swelling Adhesive [Tape] Rash Macrolides And Ketolides Other (see comment) and Rash BP drop and loss of hearing No family history on file. Social History Socioeconomic History Marital status: Tobacco Use Smoking status: Never Smokeless tobacco: Never Vaping Use Vaping status: Never Used Substance and Sexual Activity Alcohol use: Yes Comment: Socially Drug use: Never Current Outpatient Medications: atorvastatin (LIPITOR) 10 MG tablet, Take 1 tablet (10 mg total) by mouth nightly at bedtime., Disp: , Rfl: cetirizine (ZYRTEC) 10 MG tablet, Take 1 tablet (10 mg total) by mouth daily., Disp: , Rfl: Cholecalciferol (VITAMIN D3) 125 MCG (5000 UT) Chew Tab, Chew 1 capsule by mouth daily., Disp: , Rfl: famotidine (PEPCID) 40 MG tablet, Take 1 tablet (40 mg total) by mouth nightly., Disp: , Rfl: gabapentin (NEURONTIN) 100 MG capsule, Take 1 capsule (100 mg total) by mouth 2 (two) times a day.,Disp: , Rfl: lansoprazole (PREVACID) 30 MG capsule, Take 1 capsule (30 mg total) by mouth after dinner., Disp: ,Rfl: Magnesium Oxide (MAG-OX 400 OR), Take 1 tablet by mouth daily., Disp: , Rfl: metoprolol succinate ER (TOPROL-XL) 25 MG 24 hr tablet, Take 1 tablet (25 mg total) by mouth nightly., Disp: , Rfl: pantoprazole EC (PROTONIX) 40 MG tablet, Take 1 tablet (40 mg total) by mouth daily., Disp: , Rfl: potassium chloride CR (K-TAB) 10 MEQ Tab CR tablet, Take 1 tablet (10 mEq total) by mouth daily., Disp: , Rfl: rimegepant (NURTEC) 75 MG disintegrating tablet, Take 1 tablet (75 mg total) by mouth as needed. Max of 1 tablet (75 mg) in 24 hours., Disp: , Rfl: SUMAtriptan (IMITREX) 50 MG tablet, Take 1 tablet (50 mg total) by mouth 2 (two) times daily as needed for Migraine. Max of 4 tablets (200 mg) in 24 hours., Disp: , Rfl: topiramate (TOPAMAX) 25 MG tablet, Take 1 tablet (25 mg total) by mouth daily., Disp: , Rfl: triamterene-hydroCHLOROthiazide (DYAZIDE) 37.5-25 MG capsule, Take 0.5 capsules by mouth daily. Pt 1/2 tab am, Disp: , Rfl: Potassium Chloride 10 MEQ Pack, 1 tablet by Other route daily., Disp: , Rfl: @SIGNATURE@ . Norris Gordon MD Orthopedic Surgeon Adult Hip and Knee Reconstruction [facility] Some of the information written in this document may have been copied and added to this document from the note of another provider. I agree with all of the information described above. Part or all of the information in this document was transcribed using a voice command transcriptionsoftware. I reviewed this note for errors, however; spelling errors or other inaccuracies may persist. ALS ASSISTANT ALS ASSISTANT documented in this encounter Plan of Treatment Upcoming Encounters Date Type Department Care Team (Late st Contact Info) Description 11/01/2024 10:00 AM CDT Office Visit [place] [id number] Wellington Gordon Jr., [address] [place] [id number] Scheduled Referrals Name Type Priority Associated Diagnoses Orde r Schedule Ambulatory referral to Physical Therapy Referral Routine Right hip pain Ordered: 10/04/2024 documented as of this encounter Visit Diagnoses Diagnosis Right hip pain- Primary Pain in joint, pelvic region and thigh documented in this encounter Care Teams Research Librarian Relationship Specialty Start Date End Date Doris Martines MD [address] [place] [address] PCP - General INTERNAL MEDICINE 10/04/24 documented as of this encounter
--- OUTSIDE RECORDS SUMMARY | 2024-10-05 00:53 | XMS_ITS | Referral Summary ---
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 Social History Tobacco Use Types Packs/Day Years Used Date Smoking Tobacco: Never Personal Safety Answer Date Recorded Getting School Help Needed Not on file 10/23 Comments Unknown Sex and Gender Information Value Date Recorded Sex Assigned at Not on file Legal Sex Female 1:47 AM DIVISION SUPERINTENDENT Gender Identity Not on file Sexual Orientation Not on file Last Filed Vital Signs Vital Sign Reading Time Taken Comments Blood Pressure 114/70 10/26/2015 1:30 PM CDT Pulse 74 10/26/2015 1:30 PM CDT Temperature - - Respiratory Rate - - Oxygen Saturation 99% 10/26/2015 1:30 PM CDT Inhaled Oxygen Concentration - - Weight 83.9 kg (184 lb 15.5 oz) 021 10:39 AM DIVISION SUPERINTENDENT Height 172.7 cm (5' 8 ) 07/09/2021 10:3 9 AM DIVISION SUPERINTENDENT Body Mass Index 28.12 07/09/2021 10:39 AM DIVISION SUPERINTENDENT Plan of Treatment Not on file Medical Devices Implanted Type Area Crop Adjuster Device Identifier Shelf Expiration Date Model / [...] imaging studies performed on 11/02/2020, and at [facility] on 07/09/2021 and 02/14/2023. The breasts are [...] imaging studies performed on 11/02/2020, and at [facility] on 07/09/2021 and 02/14/2023. The breasts are [...] Most Recently Relevant to Health Maintenance Insurance [facility] [employer] [facility] [employer] [facility] [employer] Care Teams Metal Furniture Polisher Relationship Specialty Start Date End Date Krzysztof Martines MD [address] [facility] [address] [place], [place] [id number] PCP - General 11/22/16
--- OUTSIDE RECORDS SUMMARY | 2024-10-05 00:53 | XMS_ITS | Clinical Summary ---
Author Organization [facility] Address [address] [place] [address] Phone Care Team Providers Care Secretary Office Clerk Name Role Phone Krzysztof Martines DO Primary Care Provider [phone] Allergies Active Allergy Reactions Criticality Noted Date Comments Clarithromycin Other (See Comments) 10/06/2021 BP drop and loss of hearing Erythromycin Unknown 10/06/2021 Medications METOPROLOL SUCCINATE ORAL Take by mouth. Active topiramate (TOPAMAX ORAL) Take by mouth. Active POTASSIUM CHLORIDE, BULK, MISC by Misc.(Non-Ozzy g; Combo Route) route. Active MAGNESIUM OXIDE ORAL Take by mouth. Active pantoprazole (PROTONIX) 40 mg Tablet, Delayed Release (E.C.) Take 40 mg by mouth daily. Active LANSOPRAZOLE ORAL Take by mouth. Active famotidine (PEPCID) 40 mg tablet Take 40 mg by mouth 2 times daily. Active triamterene-hyd roCHLOROthiazid e (MAXZIDE) 75-50 mg tablet Take 1 Tablet by mouth daily. Active lidocaine (Lidoderm) 5 % Adhesive Patch, Medicated Apply 1 Patch to affected area for 12 hours on and 12 hours off. 15 Patch 10/06/2021 4:55 PM MINE ENGINEERING MANAGER 10/06/2021 Active naproxen (NAPROSYN) 500 mg tablet Take 1 Tablet (500 mg) by mouth 2 times daily with meals. 20 Tablet 10/06/2021 Active diazePAM (VALIUM) 5 mg tabletIndicatio ns:Acute bilateral low back pain without sciatica Take 1 Tablet (5 mg) by mouth every 12 hours as needed for Spasm. 6 Tablet 10/06/2021 4:55 PM MINE ENGINEERING MANAGER 10/06/2021 Active Social History Tobacco Use Types Packs/Day Years Used Date Smoking Tobacco: Never Assessed Comments Unknown Sex and Gender Information Value Date Recorded Sex Assigned at Not on file Legal Sex Female 1:59 PM MINE ENGINEERING MANAGER Gender Identity Not on file Sexual Orientation Not on file Last Filed Vital Signs Vital Sign Reading Time Taken Comments Blood Pressure 116/69 10/06/2021 6:40 PM MINE ENGINEERING MANAGER Pulse 83 10/06/2021 6:40 PM MINE ENGINEERING MANAGER Temperature 37.1 C (98.7 F) 10/06/2021 2:17 PM MINE ENGINEERING MANAGER Respiratory Rate 18 10/06/2021 6:40 PM MINE ENGINEERING MANAGER Oxygen Saturation 100% 10/06/2021 6:40 PM MINE ENGINEERING MANAGER Inhaled Oxygen Concentration - - Weight - - Height - - Body Mass Index - - Plan of Treatment Health Maintenance Due Date Last Done Comments DTAP/TDAP/TD VACCINES (1 - Tdap) 1985 HEPATITIS B VACCINES (1 of 3 - 19+ 3-dose series) 03/11 CERVICAL CANCER SCREENING 1996 BREAST CANCER SCREENING 2006 COLORECTAL SCREENING 2011 Colorectal Cancer Screening 2011 FIT-DNA Q 3 years 2011 FIT/FOBT Q 1 year 2011 Flex Sig/CT Colonography Q 5 years 2011 ZOSTER VACCINE (1 of 2) 2016 INFLUENZA VACCINE (#1) 2024 05/28/2016 Insurance FEDERAL RX [facility] [employer] Care Teams Secretary Office Clerk Relationship Specialty Start Date End Date Krzysztof Martines DO [address] [facility] [address] [place] [address] PCP - General Internal Medicine 10/06/21
--- NOTE | 2024-10-05 08:51 | P.PNAN_ITS ---
Anes - Initial Pre Proc Eval Procedure: Operation Date: 10/05/24 10:00 Proposed Procedures p Esophagogastroduodenoscopy&Screen Colon - Cristhian Jurado MD Date/Time: 10/05/24 08:51 Surgeon: Cristhian Jurado MD Pre Op Diagnosis: screening colon, GERD Patient Data Age: 59 Gender: F Height: 1.73 m Weight: 90.2 kg Allergies Allergy/AdvReac Type Severity Reaction Status Date / Time adhesive tape Allergy Blister Verified 10/05/24 08:53 azithromycin (From Zithromax Allergy Hypotension Verified 10/05/24 08:53 Z-Juaquin) clarithromycin Allergy Itching Verified 10/05/24 08:53 Macrolide Antibiotics Allergy Hypotension Verified 10/05/24 08:53 meperidine Allergy Rash Verified 10/05/24 08:53 naproxen Allergy Swelling Verified 10/05/24 08:53 Influenza Virus Vaccines AdvReac Intermediate Itching,Marco Verified 10/05/24 08:53 ma Home Medications ?Medication ?Instructions ?Recorded ?Confirmed ?Type cholecalciferol (vitamin D3) 125 5,000 unit PO DAILY 08/24/19 10/05/24 History mcg (5,000 unit) capsule famotidine 20 mg tablet 40 mg PO DAILY 08/29/20 10/05/24 History lansoprazole 30 mg capsule,delayed 30 mg PO DAILY 08/29/20 10/05/24 History release (Prevacid) ondansetron HCl 4 mg tablet 8 mg PO Q8H PRN nausea and vomiting 02/15/21 09/20/24 History (Zofran) albuterol sulfate 90 mcg/actuation 2 inh inhalation Q6H PRN ASTHMA 05/29/21 09/20/24 Rx breath activated powder inhaler ATTACK #1 ea scopolamine base 1 mg over 3 days 1 patch transdermal Q3D PRN Nausea 05/22/23 09/20/24 History transdermal patch (Transderm-Scop) hydrocodone 5 mg-acetaminophen 325 1 tablet PO BID PRN pain #20 tabs 06/03/23 09/20/24 Rx mg tablet gabapentin 100 mg capsule 100 mg PO BID #180 caps 07/08/23 10/05/24 Rx pantoprazole 40 mg tablet,delayed See Rx Instructions .Route 11/06/23 10/05/24 Rx release .COMPLEX #90 tabs rimegepant 75 mg disintegrating 75 mg PO ONCE PRN migraine 11/12/23 09/20/24 Rx tablet (Nurtec ODT) headache #8 tabs potassium chloride 10 mEq 10 meq PO DAILY #180 tabs 02/10/24 10/05/24 Rx tablet,extended release magnesium oxide 400 mg (241.3 mg See Rx Instructions .Route 05/10/24 10/05/24 Rx magnesium) tablet .COMPLEX #90 tabs metoprolol succinate 25 mg See Rx Instructions .Route 05/10/24 10/05/24 Rx tablet,extended release 24 hr .COMPLEX #90 tabs triamterene 37.5 1 cap PO DAILY #90 caps 06/10/24 10/05/24 Rx mg-hydrochlorothiazide 25 mg capsule atorvastatin 10 mg tablet See Rx Instructions .Route 09/14/24 10/05/24 Rx .COMPLEX #90 tabs methocarbamol 500 mg tablet 500 mg PO QHS 09/15/24 10/05/24 History meclizine 25 mg tablet (Dramamine 25 mg PO ONCE PRN dizziness 09/20/24 09/20/24 History (meclizine)) Patient hx anesthesia problems: none Family hx anesthesia problems: none Results Review: All pre-operative results and documents have been reviewed as part of the pre- operative evaluation. [facility] Past Medical History Medical History (Updated 09/15/24 @ 15:37 by Cal Ye APRN) AC joint arthropathy DVT of leg (deep venous thrombosis) Acute medial meniscus tear of left knee Arthritis of knee, left Ganglion cyst of volar aspect of right wrist Hyperlipidemia GERD (gastroesophageal reflux disease) Migraine Asthma Chronic low back pain Ganglion, right wrist Lateral meniscus tear, current Iliotibial band syndrome affecting left lower leg Surgical History Surgical History S/P left knee arthroscopy Family History Family History (Updated 09/15/24 @ 14:51 by KENDAL Rubio) Mother Patient's mother is in good health Family history of diabetes mellitus in first degree relative Asthma Family history of elevated blood lipids Grandparent Family history of coronary artery disease, Onset Age: 75 Diabetes mellitus, Onset Age: 70 Father Hypertension Patient's father is in good health Heart disease Other Family history of arthritis Family history of cardiovascular disease Family history of kidney disease Social History Social History (Updated 09/15/24 @ 14:51 by Kailyn Jackson [facility]) Smoking status: Never smoker Second hand tobacco smoke exposure: Yes Alcohol intake: current Alcohol use details: 2/MONTH Substance use: never Substance use type: does not use Do You Feel Safe in your Home?: Yes Lack of Transportation: No Lack of Food: Never True Current Housing: I Have Housing Concerned About Future Housing: No Difficulty Paying Gas/Electric Bills: No Difficulty Paying for Meds: No Currently Unemployed: No Education: Bachelor's Degree Difficulty w/ Childcare or Family Care: No Living arrangements: with family Occupation/Education: occupation 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 Gender identity (if verbalized by the patient): Female Sexual Orientation (if Verbalized by the Patient): Straight or Heterosexual Spiritual care concerns: No Anes - Eval Final PreProcedure Day of Procedure 10/05/24 08:51 Patient weight: obese Heart: regular rate and rhythm Lungs: clear to auscultation Airway: Mallampati scale class III Neurological: alert and oriented Last oral intake: >/= 8 hours ASA classification: III Emergent: no Anesthetic plan: proceed Anesthesia type and monitoring: general GIVS and standard monitoring Results Review: All pre-operative results and documents have been reviewed as part of the pre- operative evaluation. Informed Consent: The patient's anesthetic plan and its attendant risks and benefits were discussed with the patient/family/POA. Questions were solicited and answers provided to the satisfaction of the patient/family/POA.
[2024-10-05 08:55] VITALS: BP 177/82; PULSE 81; RESP 18; TEMP 36.1; O2SAT 99; BMI 30.9
[2024-10-05] MEDS: LACTATED RINGERS 1,000 ML 150 ML IV CONT (09:04)
--- NOTE | 2024-10-05 09:19 | PM.HPGS ---
History of Present Illness History of Present Illness Consent: Risks, benefits, and alternatives have been discussed and questions answered. Patient agrees to proceed with procedure. Chief complaint: screening colon, GERD Narrative: Amaris Marie is a 59 year old female here for screening colonoscopy last one 2013, also EGD 2020 with empiric dilation that helped with her choking, recently with similar symptoms, also h/o chronic GERD on ppi daily and famotidine. Review of Systems Review of Systems: All systems reviewed & are unremarkable except as noted in HPI and below PMFSH Past Medical History Medical History (Updated 10/05/24 @ 09:20 by Cristhian Jurado MD) Choking Colon cancer screening AC joint arthropathy DVT of leg (deep venous thrombosis) Acute medial meniscus tear of left knee Arthritis of knee, left Ganglion cyst of volar aspect of right wrist Hyperlipidemia GERD (gastroesophageal reflux disease) Migraine Asthma Chronic low back pain Ganglion, right wrist Lateral meniscus tear, current Iliotibial band syndrome affecting left lower leg Surgical History Surgical History S/P left knee arthroscopy Family History Family History (Updated 09/15/24 @ 14:51 by KENDAL Rubio) Mother Patient's mother is in good health Family history of diabetes mellitus in first degree relative Asthma Family history of elevated blood lipids Grandparent Family history of coronary artery disease, Onset Age: 75 Diabetes mellitus, Onset Age: 70 Father Hypertension Patient's father is in good health Heart disease Other Family history of arthritis Family history of cardiovascular disease Family history of kidney disease Social History Social History (Updated 09/15/24 @ 14:51 by KENDAL Rubio) Smoking status: Never smoker Second hand tobacco smoke exposure: Yes Alcohol intake: current Alcohol use details: 2/MONTH Substance use: never Substance use type: does not use Do You Feel Safe in your Home?: Yes Lack of Transportation: No Lack of Food: Never True Current Housing: I Have Housing Concerned About Future Housing: No Difficulty Paying Gas/Electric Bills: No Difficulty Paying for Meds: No Currently Unemployed: No Education: Bachelor's Degree Difficulty w/ Childcare or Family Care: No Living arrangements: with family Occupation/Education: occupation 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 Gender identity (if verbalized by the patient): Female Sexual Orientation (if Verbalized by the Patient): Straight or Heterosexual Spiritual care concerns: No Meds Home Medications and Allergies Home Medications ?Medication ?Instructions ?Recorded ?Confirmed ?Type cholecalciferol (vitamin D3) 125 5,000 unit PO DAILY 08/24/19 10/05/24 History mcg (5,000 unit) capsule famotidine 20 mg tablet 40 mg PO DAILY 08/29/20 10/05/24 History lansoprazole 30 mg capsule,delayed 30 mg PO DAILY 08/29/20 10/05/24 History release (Prevacid) ondansetron HCl 4 mg tablet 8 mg PO Q8H PRN nausea and vomiting 02/15/21 09/20/24 History (Zofran) albuterol sulfate 90 mcg/actuation 2 inh inhalation Q6H PRN ASTHMA 05/29/21 09/20/24 Rx breath activated powder inhaler ATTACK #1 ea scopolamine base 1 mg over 3 days 1 patch transdermal Q3D PRN Nausea 05/22/23 09/20/24 History transdermal patch (Transderm-Scop) hydrocodone 5 mg-acetaminophen 325 1 tablet PO BID PRN pain #20 tabs 06/03/23 09/20/24 Rx mg tablet gabapentin 100 mg capsule 100 mg PO BID #180 caps 07/08/23 10/05/24 Rx pantoprazole 40 mg tablet,delayed See Rx Instructions .Route 11/06/23 10/05/24 Rx release .COMPLEX #90 tabs rimegepant 75 mg disintegrating 75 mg PO ONCE PRN migraine 11/12/23 09/20/24 Rx tablet (Nurtec ODT) headache #8 tabs potassium chloride 10 mEq 10 meq PO DAILY #180 tabs 02/10/24 10/05/24 Rx tablet,extended release magnesium oxide 400 mg (241.3 mg See Rx Instructions .Route 05/10/24 10/05/24 Rx magnesium) tablet .COMPLEX #90 tabs metoprolol succinate 25 mg See Rx Instructions .Route 05/10/24 10/05/24 Rx tablet,extended release 24 hr .COMPLEX #90 tabs triamterene 37.5 1 cap PO DAILY #90 caps 06/10/24 10/05/24 Rx mg-hydrochlorothiazide 25 mg capsule atorvastatin 10 mg tablet See Rx Instructions .Route 09/14/24 10/05/24 Rx .COMPLEX #90 tabs methocarbamol 500 mg tablet 500 mg PO QHS 09/15/24 10/05/24 History meclizine 25 mg tablet (Dramamine 25 mg PO ONCE PRN dizziness 09/20/24 09/20/24 History (meclizine)) Allergies Allergy/AdvReac Type Severity Reaction Status Date / Time adhesive tape Allergy Blister Verified 10/05/24 08:53 azithromycin (From Zithromax Allergy Hypotension Verified 10/05/24 08:53 Z-Juaquin) clarithromycin Allergy Itching Verified 10/05/24 08:53 Macrolide Antibiotics Allergy Hypotension Verified 10/05/24 08:53 meperidine Allergy Rash Verified 10/05/24 08:53 naproxen Allergy Swelling Verified 10/05/24 08:53 Influenza Virus Vaccines AdvReac Intermediate Itching,Marco Verified 10/05/24 08:53 ma Vital Signs Vital Signs - 24 hr 10/05/24 08:55 Temperature 97 F L Pulse Rate 81 Respiratory Rate 18 Blood Pressure 177/82 H Pulse Oximetry 99 Oxygen Delivery Room Air Exam Const: General: comfortable and no acute distress HENMT: Face/Nose/Sinus: Normal nares present Eyes: General: appearance normal, both eyes and all related structures Neck: Neck: no JVD Resp: Auscultation: clear to auscultation bilaterally Cardio: Rate: regular rate Rhythm: regular rhythm GI: Inspection: non-distended GI Palp: Yes Soft to palpation Skin: General skin exam: normal color Neuro: Speech: normal speech Extrem: General: normal to inspection Psych: Mental Status: mental status grossly normal Assessment and Plan Assessment and plan (1) GERD (gastroesophageal reflux disease): Code(s): K21.9 - Gastro-esophageal reflux disease without esophagitis Status: Acute Assessment and Plan: egd (2) Colon cancer screening: Code(s): Z12.11 - Encounter for screening for malignant neoplasm of colon Status: Acute Assessment and Plan: colonoscopy (3) Choking: Code(s): T17.308A - Unspecified foreign body in larynx causing other injury, initial encounter Status: Acute
[2024-10-05] MEDS: BENZOCAINE (*SP) 60 ML SPRAY CAN (HURRICAINE) 1 SPRAY MUCOUS MEM (09:28)
--- NOTE | 2024-10-05 09:37 | SUR.OPER ---
EGD: [id number] COLON: 0937
[2024-10-05 09:47] VITALS: BP 110/67; PULSE 82; RESP 19; O2SAT 100
[2024-10-05 09:57] VITALS: BP 117/71; PULSE 69; RESP 18; O2SAT 100
[2024-10-05 10:07] VITALS: BP 127/77; PULSE 69; RESP 20; O2SAT 100
== END 2024-10-05 10:20 | disposition home or self-care (01) ==
PROVIDERS: PCP Internal Medicine; Referring Provider Internal Medicine; Visit Provider Internal Medicine Gastroenterology
PROC: 0DJ08ZZ Inspection of Upper Intestinal Tract, Via Natural or Artificial Opening Endoscopic (ICD-10-PCS; CPT 45378; principal; 2024-10-05 10:00)
DX: Z12.11 Encounter for screening for malignant neoplasm of colon (principal); D12.2 Benign neoplasm of ascending colon; K64.8 Other hemorrhoids; K21.9 Gastro-esophageal reflux disease without esophagitis; R13.12 Dysphagia, oropharyngeal phase
CPT/HCPCS: 45385; 43239; 43450; 88305; J2003; J2704; J7120

== ENCOUNTER 2024-11-20 16:13 | Emergency (ER) | payer BC, SELFPAY ==
--- NOTE | ~2024-11-20 | XR_ITS ---
XR knee LT min 4V Ordering provider: MARCIE Adam History: . trip/fall onto knee today. . Comparison: September 16, 2023 FINDINGS: BONES: No acute fracture or dislocation. JOINT SPACES: Normal. SOFT TISSUES: Soft tissue swelling seen anterior to the patellar tendon which may be a hematoma. IMPRESSION: No acute osseous abnormality left knee. Soft tissue swelling anterior to the patellar tendon which may be a hematoma. Reviewed, dictated and finalized at location A.
--- OUTSIDE RECORDS SUMMARY | 2024-11-20 16:16 | XMS_ITS | Referral Summary ---
Author Organization [facility] Address [address] [place] [id number] Care Team Providers Care Naval Gunfire Liaison Officer Name Role Phone Krzysztof Martines MD Primary Care Provider [phone] Allergies Active Allergy Reactions Criticality Noted Date [...] on file Legal Sex Female 1:47 AM DIRECTOR STRATEGY Gender Identity Not on file Sexual Orientation Not on file Last Filed Vital Signs Vital Sign Reading Time Taken Comments Blood Pressure 114/70 10/26/2015 1:30 PM CDT Pulse 74 10/26/2015 1:30 PM CDT Temperature - - Respiratory Rate - - Oxygen Saturation 99% 10/26/2015 1:30 PM CDT Inhaled Oxygen Concentration - - Weight 83.9 kg (184 lb 15.5 oz) 021 10:39 AM DIRECTOR STRATEGY Height 172.7 cm (5' 8 ) 07/09/2021 10:3 9 AM DIRECTOR STRATEGY Body Mass Index 28.12 07/09/2021 10:39 AM DIRECTOR STRATEGY Plan of Treatment Not on file Medical Devices Implanted Type Area Glueline Worker Device Identifier Shelf Expiration Date Model / [...] imaging studies performed on 11/02/2020, and at [facility] on 07/09/2021 and 02/14/2023. The breasts [...] imaging studies performed on 11/02/2020, and at [facility] on 07/09/2021 and 02/14/2023. The breasts [...] Most Recently Relevant to Health Maintenance Insurance [facility] [employer] [facility] [employer] [place] [facility] [employer] Care Teams Naval Gunfire Liaison Officer Relationship Specialty Start Date End Date Krzysztof Martines MD [address] [facility] [address] [place], [place] [id number] PCP - General 11/22/16
--- OUTSIDE RECORDS SUMMARY | 2024-11-20 16:16 | XMS_ITS | Clinical Summary ---
Author Organization [facility] Address [facility] [place] [address] Care Team Providers Care Public Utilities Sales Representative Name Role Phone Krzysztof Martines MD Primary Care Provider [phone] Allergies Active Allergy Reactions Criticality Noted Date [...] tablet (10 mEq total) by mouth daily. Active Potassium Chloride 10 MEQ Pack 1 [...] Department Care Team Description 10/04/2024 9:45 AM CHARACTER ARTIST - 10/04/2024 11:59 PM CHARACTER ARTIST Hospital Encounter [facility] [address] [place] [id number] Wellington Gordon Jr., DO Discharge Disposition: Home or Self Care (Routine Discharge) 10/04/2024 9:45 AM CHARACTER ARTIST Office Visit [address] [address] Wellington Gordon Jr., DO Hip Pain (RIGHT - DOI: 09/12/2024) 10/04/2024 Travel 09/23/2024 Orders Only [address] [address] Wellington Gordon Jr., DO from Last 3 Months Social History Tobacco Use Types Packs/Day Years Used Date Smoking Tobacco: Never Smokeless Tobacco: Never Tobacco Cessation:Counseling Given: Not Answered Alcohol Use Standard Drinks/Week Comments Yes 0 (1 standard drink = 0.6 oz pur e alcohol) Socially Comments Unknown Sex and Gender Information Value Date Recorded Sex Assigned at Female 10/04/2024 9:49 AM CHARACTER ARTIST Legal Sex Female 7:01 PM CDT Gender [...] 92.1 kg (203 lb) 10/04/2024 9:51 AM CHARACTER ARTIST Height 172.7 cm (5' 8 ) 10/04/2024 9:51 AM CHARACTER ARTIST Body Mass Index 30.87 10/04/2024 9:51 AM CHARACTER ARTIST Plan of Treatment Health Maintenance Due Date Last Done Comments Colorectal Cancer Screening Colonoscopy (10 Years) 1966 Annual Physical 1969 Hepatitis C 1984 DTaP, Tdap and Td Vaccines (1 - Tdap) 1985 Hepatitis B Vaccines (1 of 3 - 19+ 3-dose series) 1985 Zoster Vaccines (1 of 2) 2016 COVID-19 Vaccine ( season) 2024 05/21/2022, 12/03/2021, 04/09/2021, Additional history exists Mammogram Screening 05/19/2026 05/19/2024, [...] this topic Medical Devices Explanted Type Area Chemist Device Identifier Shelf Expiration Date Model / Serial / Lot K Wire Nellie 9 In X .045 In - [id number] Explanted:Qty: 1 on 05/13/2024 by Wili Ann MD at [facility] Wire Right: Wrist [employer] [id number] / / NA Procedures Procedure Name Priority Date/Time Associated Diagnosis Comments XR PELVIS 1 OR 2 VIEWS Routine 10/04/2024 10:00 AM CHARACTER ARTIST Right hip pain from Last 3 Months Results * XR PELVIS 1 OR 2 VIEWS (10/04/2024 10:00 AM CHARACTER ARTIST) Anatomical Region Laterality Modality Pelvis Radiographic Keiry ging 10/04/2024 11:0 5 AM CHARACTER ARTIST Impressions 10/04/2024 11:06 AM CHARACTER ARTIST IMPRESSION: 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 Ordered By: WELLINGTON ARNDT V Interpreted By: Demario Lara MD, 10/04/2024 11:05 AM Narrative 10/04/2024 11:06 AM CHARACTER ARTIST [address] [place] [address] Procedure(s): XR PELVIS 1 OR 2 VIEWS [...] Procedure Note Demario Lara MD - 10/04/[address] [place] [address] Procedure(s): XR PELVIS 1 OR 2 VIEWS [...] joints bilaterally, leftgreater than right. Ordered By: WELLINGTON ARNDT V Interpreted By: Demario Lara MD, 10/04/2024 11:05 AM Wellington Gordon Jr., DO GENERAL IMAGING Final Re sult from Last 3 Months Insurance [facility] [[email or web address]] Care Teams Public Utilities Sales Representative Relationship Specialty Start Date End Date Krzysztof Martines MD [address] [place] [address] PCP - General INTERNAL MEDICINE 10/04/24
--- OUTSIDE RECORDS SUMMARY | 2024-11-20 16:16 | XMS_ITS | Clinical Summary ---
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 DESIGNER Gender Identity Not on file Sexual Orientation [...] (184 lb 15.5 oz) 021 10:39 AM PRINTED CIRCUIT BOARD PCB DESIGNER Height 172.7 cm (5' 8 ) 07/09/2021 10:3 9 AM PRINTED CIRCUIT BOARD PCB DESIGNER Body Mass Index 28.12 07/09/2021 10:39 AM PRINTED CIRCUIT BOARD PCB DESIGNER Plan of Treatment Health Maintenance Due Date Last Done Comments Cervical Cancer Screening 1966 Colon Cancer Screening-Colonoscopy 1966 Depression Screening 1966 Hepatitis C Screening 1966 DTaP/Tdap/Td Vaccine (1 - Tdap) 1977 Regular Well Visit/Exam 18-64 1984 Zoster Vaccine (1 of 2) 2016 Influenza Vaccine (Season Ended) 2025 05/25/2020, 05/19/2019, 05/07/2017, Additional history exists Breast Cancer Screening-Mammogram 05/19/2025 05/19/2024, 02/14/2023, 02/14/2023, Additional history exists Hepatitis B Screening Completed 10/29/2015, 015 Pneumococcal vaccine <65 Aged Out No longer eligible based on patient's age to complete this topic Medical Devices Implanted Type Area Paper Cup Machine Operator Device Identifier Shelf Expiration Date Model / [...] imaging studies performed on 11/02/2020, and at [facility] on 07/09/2021 and 02/14/2023. The breasts are [...] imaging studies performed on 11/02/2020, and at [facility] on 07/09/2021 and 02/14/2023. The breasts are [...] Plan / Payer (Ef fective 2020-Present) Name:Maribel Garcia Member ID:F Relation to Subscriber:Not on file Subscriber ID:Not on file Payer ID:[id number] (NAIC) Type:[employer] Address: [id number] [facility] [employer] [facility] [employer] Care Teams Type Disk Quality Control Supervisor Relationship Specialty Start Date End Date Krzysztof Martines MD [address] [facility] [address] [place] [address] PCP - General 11/22/16
--- OUTSIDE RECORDS SUMMARY | 2024-11-20 16:16 | XMS_ITS | Clinical Summary ---
Author Organization [facility] Address [address] [place] [phone] Phone Care Team Providers Care Extermination Supervisor Name Role Phone Krzysztof Martines DO Primary Care Provider [phone] Allergies Active Allergy Reactions Criticality Noted Date [...] hours off. 15 Patch 10/06/2021 4:55 PM MAILING SECTION CLERK 10/06/2021 Active naproxen (NAPROSYN) 500 mg tablet Take 1 Tablet (500 mg) by mouth 2 times daily with meals. 20 Tablet 10/06/2021 Active diazePAM (VALIUM) 5 mg tabletIndicatio ns:Acute bilateral low back pain without sciatica Take 1 Tablet (5 mg) by mouth every 12 hours as needed for Spasm. 6 Tablet 10/06/2021 4:55 PM MAILING SECTION CLERK 10/06/2021 Active Social History Tobacco Use Types Packs/Day Years Used Date Smoking Tobacco: Never Assessed Comments Unknown Sex and Gender Information Value Date Recorded Sex Assigned at Not on file Legal Sex Female 1:59 PM MAILING SECTION CLERK Gender Identity Not on file Sexual Orientation Not on file Last Filed Vital Signs Vital Sign Reading Time Taken Comments Blood Pressure 116/69 10/06/2021 6:40 PM MAILING SECTION CLERK Pulse 83 10/06/2021 6:40 PM MAILING SECTION CLERK Temperature 37.1 C (98.7 F) 10/06/2021 2:17 PM MAILING SECTION CLERK Respiratory Rate 18 10/06/2021 6:40 PM MAILING SECTION CLERK Oxygen Saturation 100% 10/06/2021 6:40 PM MAILING SECTION CLERK Inhaled Oxygen Concentration - - Weight - - Height - - Body Mass Index - - Plan of Treatment Health Maintenance Due Date Last Done Comments DTAP/TDAP/TD VACCINES (1 - Tdap) 1985 HEPATITIS B VACCINES (1 of 3 - 19+ 3-dose series) 03/11 HPV/Cotest (21-29) 1987 CERVICAL CANCER SCREENING 1996 HPV/Cotest (30-65) 1996 PAP SMEAR 1996 BREAST CANCER SCREENING 2006 COLORECTAL SCREENING 2011 Colorectal Cancer Screening 2011 FIT-DNA Q 3 years 2011 FIT/FOBT Q 1 year 2011 Flex Sig/CT Colonography Q 5 years 2011 ZOSTER VACCINE (1 of 2) 2016 INFLUENZA VACCINE (#1) 2024 05/28/2016 Insurance FEDERAL RX [facility] [employer] Care Teams Extermination Supervisor Relationship Specialty Start Date End Date Krzysztof Martines DO [address] [facility] [address] [place] [address] PCP - General Internal Medicine 10/06/21
--- OUTSIDE RECORDS SUMMARY | 2024-11-20 16:16 | XMS_ITS | Continuity of Care Document ---
Author Organization [facility] Address [address] [place] [address] [address] [place] [address] Phone Care Team Providers Care Sketch Artist Name Role Phone Kc PT,MPT,ATC, Tyree Unavailable Unavai lable Procedures Procedure Date Therapeutic Activities Neuromuscular Re-Ed Therapeutic Exercise Therapeutic Activities Neuromuscular Re-Ed Therapeutic Exercise Therapeutic Activities Neuromuscular Re-Ed Therapeutic Exercise Therapeutic Activities Neuromuscular Re-Ed Therapeutic Exercise Therapeutic Activities Neuromuscular Re-Ed Therapeutic Exercise PT Evaluation High Complexity Therapeutic Activities Therapeutic Exercise Neuromuscular Re-Ed Progress Note Therapeutic Activities Therapeutic Activities Therapeutic [...] Diagnoses Date Provider Providers Copied on Encounter [facility], [address] [facility] [address], [place], [place], [id number], [place] tel:[phone] [place] No Information Apr-0 2-202 5 Kc Tyree. , [place], [place]. [facility], [address], [place], [place], [address], [place] tel:[phone] [place] No Information Mar-2 4-202 5 Kc Tyree. , [place], [place]. Referring Provider: Wellington Pisano, [address] [facility] [address], [place], [address]. tel:[phone] [facility], [address], [place], [place], [id number], [place] tel:[phone] [place] No Information Mar-1 7- 5 Kc Tyree. , [place], [place]. Referring Provider: Wellington Pisano, [address] [facility] [address], [place], [address]. tel:+ [facility], [address], [place], [place], [address], [place] tel:[phone] [place] No Information Mar-1 3-202 5 Kc Tyree. , [place], [place]. Referring Provider: Wellington Pisano, [address] [facility] [address], [place], [address]. tel:[phone] [facility], [address], [place], [place], [address], [place] tel:[phone] [place] No Information Mar-1 0-202 5 Kc Tyree. , [place], [place]. Referring Provider: Wellington Pisano, [address] [facility] [address], [place], [address]. tel:[phone] [facility], [address], [place], [place], [id number], [place] tel:[phone] [place] No Information Mar-0 6-202 5 Kc Tyree. , [place], [place]. Referring Provider: Wellington Pisano, [address] [facility] [address], [place], [address]. tel:[phone] [facility], [address], [place], [place], [id number], [place] tel:[phone] [place] No Information 5 [place], [place], [place]. Referring Provider: Wellington Pisano, [address], [place], [address]. tel:[phone] [facility], [address], [place], [place], [address], [place] tel:[phone] [place] No Information 4 Michel Mccormick. . Referring Provider: Félix Reyes, [address] [place] [address] [address], [place], [address]. [facility], [address], [place], [place], [id number], [place] tel:[phone] [place] No Information 4 Michel Mccormick. . Referring Provider: Félix Reyes, [address] [place] [address] [address], [place], [address]. [facility], [place], [place], [address], [place] tel:[phone] [place] No Information 4 Michel Mccormick. . Referring Provider: Félix Reyes, [address] [place] [address] [address], [place], [address]. [facility], [address], [place], [place], [address], [place] tel:[phone] [place] No Information 4 Michel Mccormick. . Referring Provider: Félix Reyes [address] [place] [address] [address], [place], [address]. [facility], [place], [address], [place] tel:[phone] [place] No Information 4 Michel Mccormick. . Referring Provider: Félix Reyes [address] [place] [address] [address], [place], [address]. [facility], [place], [place], [address], [place] tel:[phone] [place] No Information 4 Klahn Jace. . Referring Provider: Félix Reyes, [address] [place] [address] [address], [place], [address]. [facility], [address], [place], [place], [address], [place] tel:[phone] [place] No Information 0 2- 4 Klahn Jace. . Referring Provider: Félix Reyes, [address] [place] [address] [address], [place], [address]. [facility], [address] [place], [place] [address], [place], [place], [address], [place] tel:[phone] [place] No Information 2 3 Klahn Jace. . Referring Provider: Félix Reyes, [address] [place] [address] [address], [place], [address]. [facility], [address] [facility] [address], [place], [address], [place] tel:[phone] [place] No Information 3 Klahn Jace. . Referring Provider: Félix Reyes, [address] [place] [address] [address], [place], [address]. [facility], [address], [place], [place], [address], [place] tel:[phone] [place] No Information 3 Klahn Jace. . Referring Provider: Félix Reyes, [address] [place] [address] [address], [place], [address]. [facility] [address], [place], [place], [address], [place] tel:[phone] [place] No Information 0 3 Klahn Jace. . Referring Provider: Félix Reyes, [address] [place] [address] [address], [place], [address]. [facility], [address], [place], [place], [address], [place] tel:[phone] [place] No Information 3 0- 3 Klahn Jace. . Referring Provider: Félix Reyes [address] [place] [address] [address], [place], [address]. [facility], [address], [place], [place], [address], [place] tel:[phone] [place] No Information Nov2 3 Klahn Jace. . Referring Provider: Félix Reyes, [address] [place] [address] [address], [place], [address]. [facility], [address], [place], [place], [address], [place] tel:[phone] [place] No Information Nov2 3 Klahn Jace. . Referring Provider: Félix Reyes, [address] [place] [address] [address], [place], [address]. [facility], [address], [place], [place], [address], [place] tel:[phone] [place] No Information 3 Klahn Jace. . Referring Provider: Félix Reyes, [address] [place] [address] [address], [place], [address]. [facility], [address], [place], [place], [address], [place] tel:[phone] [place] No Information Nov 3 Kln Jace. . Referring Provider: Félix Reyes, [address] [place] [address] [address], [place], [address]. [facility], [address], [place], [place], [address], [place] tel:[phone] [place] No Information Nov0 3 Kln Jace. . Referring Provider: Félix Reyes, [address] [place] [address] [address], [place], [address]. [facility], [place], [place], [address], [place] tel:[phone] [place] No Information Nov0 3 Kln Jace. . Referring Provider: Félix Reyes, [address] [place] [address] [address], [place], [address]. [facility] [address], [place], [place], [address], tel:[phone] [place] No Information 0 2- 3 Michel Mccormick. . Referring Provider: Félix Reyes, [address] [place] [address] [address], [place], [address]. [facility], [facility] [address], [place], [place], [address], tel:[phone] [place] No Information 3 0- 3 Michel Mccormick. . Referring Provider: Félix Reyes, [address] [place] [address] [address], [place], [address]. [facility], [address], [place], [place], [address], tel:[phone] [place] No Information 3 Michel Mccormick. . Referring Provider: Félix Reyes, [address] [place] [address] [address], [place], [address]. [address], [place], [place], [address], tel:[phone] [place] Pain in left finger(s)Rec urrent dislocation, left finger Ovi-0 [address] Consuelo Pritchett. [address] [facility], [address], [place], [place], [facility], [place]. tel:[phone] Referring Provider: Félix Reyes, [address] [place] [address] [address], [place], [address]. Family History Family Member Type Diagnosis Age At Onset No Information Payers Payer name Insurance type Covered green party ID Skinny sandoval(s) [facility] [id number] Social History Type Description Quantity Date Captured Comments Sex Female Smoking Status No Information Chief Complaint And Reason For Visit No Information Reason For Referral Reason For Referral No Information History Of Present Illness Encounter Date Complaint History Of Prese nt Illness No Information Functional Status Date Functional Assessmen t No Information Instructions Date Instruction Additional Infor mation Giving encouragement to exercise Related to Overweight Giving encouragement to exercise Related to Overweight Assessments Type Assessment Date No Information Patient Care Teams Name Effective Dates (start - stop) Status Members No Information
--- OUTSIDE RECORDS SUMMARY | 2024-11-20 16:16 | XMS_ITS | Clinical Summary ---
Author Organization [facility] Address [address] [facility] [place] [address] Care Team Providers Care Keno Writer/Runner Name Role Phone Paco Garcia MD Primary Care Provider [phone] Krzysztof Martines DO Unavailable [phone] Source Comments [facility],non-owned Affiliates and Associated Physician Practices is amultiple site organization consisting of ambulatory clinics and hospital sitesin [place], [place], [place] and [place]. This disclosure is being madepursuant to the Care Everywhere program and may not contain all information available regarding this patient. Last updated 18.[facility] [employer] Immunizations Immunization Administration Dates Next Due FLU VACCINE QUAD IIV4 PF ID 05/28/2016 Social History Tobacco Use Types Packs/Day Years Used Date Smoking Tobacco: Never Assessed Comments Unknown Sex and Gender Information Value Date Recorded Sex Assigned at Not on file Legal Sex Female 1:57 PM CDT Gender Identity Not on file [...] VACCINE (1 of 2) 2016 COVID-19 VACCINE (1 - 2023-2 5 season) 2024 DEPRESSION SCREENING 08/11/2024 INFLUENZA VACCINE (Season Ended) 2025 05/28/20 16 HIB VACCINE Aged Out No longer eligi ble based on patient's age to complete this topic HPV VACCINE Aged Out No longer eligi ble based on patient's age to complete this topic MENINGOCOCCAL (Group B) VACC INE SHARED DECISION-MAKING Aged Out No longer eligibl e based on patient's age to complete this topic MENINGOCOCCAL GROUPS A/C/Y/W VACCINE Aged Out No longer eligible b ased on patient's age to complete this topic Insurance [facility] Address: [facility] [id number] [place] [address] SELF PAY NO INSURANCE Member Subscriber Plan / Payer (Ef fective for All Dates) Name:Myrna Garcia Member ID:Not on file Relation to Subscriber:Self Name:MYRNA GARCIA Subscriber ID:Not on file Payer ID:Not on file Group ID:Not on file Type:Self Pay Address: [facility] Care Teams Keno Writer/Runner Relationship Specialty Start Date End Date Paco Garcia MD [address] [place] [address] PCP - General 01/23/21 Krzysztof Martines DO [address] [facility] [address] [place] [address] Internal Medicine 01/23/21
--- OUTSIDE RECORDS SUMMARY | 2024-11-20 16:16 | XMS_ITS | Encounter Summary ---
Author Organization [facility] Address [address] [place] [address] Care Team Providers Care Marking Machine Tender Name Role Phone Connor Marie MD Primary Care Provider Conrad Krzysztof L DO Unavailable Encounter Details Date Type Department Care Team (Late st Contact Info) Description 05/24/2021 Lab Requisition [facility] [address] [place] [address] Danny [place] [address] Social History Tobacco Use Types Packs/Day Years [...] AM CDT) Case Report Dermatopathology Report Case: [id number] Authorizing Provider: Danny Cantor MD Collected: 05/22/2021 12:00 AM Ordering Location: [facility] Received: 05/24/2021 08:15 AM Pathologist: Mirna Eastman MD Specimens: A) - Skin, right superior inner thigh B) - Skin, left superior inner thigh 5:21 PM [facility] Final Diagnosis Specimen A. 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 5:21 PM [facility] Gross Description Specimen A: Received is one formalin filled container labeled with the patient's name and designated right superior inner thigh. The specimen consists of a punch biopsy measuring [id number], bisected. Jar 0. Specimen B: Received is one formalin filled container labeled with the patient's name and designated left superior inner thigh. The specimen consists of a punch biopsy measuring [id number], bisected. Jar 0. 5:21 PM [facility] Microscopic Description Specimen A. SKIN, [...] microscopic description in specimen A. 5:21 PM [facility] Disclaimer An external and internal positive and negative controls are appropriate for the histochemical, immunohistochemical and immunofluorescence stain(s) in this case (if any), except where stated explicitly. The performance characteristics of the stain(s) cited in this report were developed and its performance characteristic determined by the Dermatopathology Laboratory at [facility], directed by Dr. Rita Tong. These tests need not be, and therefore are not, approved by the [place] Food and Drug Administration. The tests are used for clinical purposes. Billing Codes Specimen Charges Stain Charges 80759 79105 1 1 16918 44089 75433 98725 1 1 1 1 1 5:21 PM CDT DERMATOPATHOLOGY LABORATORY Embedded Images 5:21 PM CDT DERMATOPATHOLOGY LABORATORY Pathology/Cytology TISSUE SPECIMEN FROM SKIN / Unknown 05/22/2021 05/24/2021 8:15 AM CDT Miscellaneous samples (specimen) TISSUE SPECIMEN FROM SKIN / Unknown 05/22/2021 05/24/2021 8:15 AM CDT Danny Cantor MD LAB - PATHOLOGY/CYTOLOGY ORD ERABLES Final Result DERMATOPATHOLOGY LABORATORY [facility] - Department of Dermatology [facility] Medicine [address] [place] [address], [address] [phone] documented in this encounter Visit Diagnoses Not on filedocumented in this encounter Care Teams Marking Machine Tender Relationship Specialty Start Date End Date Connor Marie MD [address] [place] [address] PCP - General 01/23/21 Krzysztof Martines DO [address] [facility] [address] [place] [address] Internal Medicine 01/23/21 documented as of this encounter
--- OUTSIDE RECORDS SUMMARY | 2024-11-20 16:19 | XMS_ITS | Continuity of Care Document ---
Author Organization [employer] [place] Address [address] [place] [address] [address] [place] [address] Phone Care Team Providers Care Hat Renovator Name Role Phone Kc PT,MPT,ATC, Tyree Unavailable Unavai lable Procedures Procedure Date Therapeutic Activities Neuromuscular Re-Ed Therapeutic Exercise Therapeutic Activities Neuromuscular Re-Ed Therapeutic Exercise Therapeutic Activities Neuromuscular Re-Ed Therapeutic Exercise Therapeutic Activities Neuromuscular Re-Ed Therapeutic Exercise Therapeutic Activities Neuromuscular Re-Ed Therapeutic Exercise PT Evaluation High Complexity Therapeutic Activities Neuromuscular Re-Ed Therapeutic Exercise Progress Note Therapeutic Activities Therapeutic Activities Therapeutic [...] Date Provider Providers Copied on Encounter [employer] [place], [address] [facility] [address], [place], [place], [id number], [place] tel:[phone] [place] No Information Apr-0 2-202 5 Kc Tyree. , [place], [place]. [facility], [address], [place], [place], [address], [place] tel:[phone] [place] No Information Mar-2 4-202 5 Kc Tyree. , [place], [place]. Referring Provider: Wellington Pisano, [address] [facility] [address], [place], [address]. tel:[phone] [facility], [address], [place], [place], [id number], [place] tel:[phone] [place] No Information Mar-1 7- 5 Kc Tyree. , [place], [place]. Referring Provider: Wellington Pisano, [address] [facility] [address], [place], [address]. tel:+ [facility], [address], [place], [place], [id number], [place] tel:[phone] [place] No Information Mar-1 3-202 5 Kc Tyree. , [place], [place]. Referring Provider: Wellington Pisano, [address] [facility] [address], [place], [address]. tel:[phone] [facility], [address], [place], [place], [address], [place] tel:[phone] [place] No Information Mar-1 0-202 5 Kc Tyree. , [place], [place]. Referring Provider: Wellington Pisano, [address] [facility] [address], [place], [address]. tel:[phone] [facility], [address], [place], [place], [id number], [place] tel:[phone] [place] No Information Mar-0 6-202 5 Kc Tyree. , [place], [place]. Referring Provider: Wellington Pisano, [address] [facility] [address], [place], [address]. tel:[phone] [facility], [address], [place], [place], [address], [place] tel:[phone] [place] No Information 5 [place], [place], [place]. Referring Provider: Wellington Pisano, [address], [place], [address]. tel:[phone] [facility], [address], [place], [place], [id number], [place] tel:[phone] [place] No Information 4 Michel Mccormick. . Referring Provider: Félix Reyes, [address] [place] [address] [address], [place], [address]. [facility], [address], [place], [place], [id number], [place] tel:[phone] [place] No Information 4 Michel Mccormick. . Referring Provider: Félix Reyes, [address] [place] [address] [address], [place], [address]. [facility], [place], [place], [address], [place] tel:[phone] [place] No Information 4 Michel Mccormick. . Referring Provider: Félix Reyes, [address] [place] [address] [address], [place], [address]. [facility], [address], [place], [place], [id number], [place] tel:[phone] [place] No Information 4 Michel Mccormick. . Referring Provider: Félix Reyes [address] [place] [address] [address], [place], [address]. [facility], [place], [place], [address], [place] tel:[phone] [place] No Information 4 Michel Mccormick. . Referring Provider: Félix Reyes [address] [place] [address] [address], [place], [address]. [facility], [place], [place], [id number], [place] tel:[phone] [place] No Information 4 Klahn Jace. . Referring Provider: Félix Reyes, [address] [place] [address] [address], [place], [address]. [facility], [address] [facility] [address], [place], [place], [id number], [place] tel:[phone] [place] No Information 0 2- 4 Klahn Jace. . Referring Provider: Félix Reyes, [address] [place] [address] [address], [place], [address]. [facility], [address] [place], [place] [address], [place], [place], [id number], [place] tel:[phone] [place] No Information 2 3 Klahn Jace. . Referring Provider: Félix Reyes, [address] [place] [address] [address], [place], [address]. [facility], [address] [facility] [address], [place], [place], [id number], [place] tel:[phone] [place] No Information 3 Klahn Jace. . Referring Provider: Félix Reyes, [address] [place] [address] [address], [place], [address]. [facility], [address] [facility] [address], [place], [place], [id number], [place] tel:[phone] [place] No Information 3 Klahn Jace. . Referring Provider: Félix Reyes, [address] [place] [address] [address], [place], [address]. [facility] [address], [place], [place], [id number], [place] tel:[phone] [place] No Information 0 3 Klahn Jace. . Referring Provider: Félix Reyes, [address] [place] [address] [address], [place], [address]. [facility], [address] [facility] [address], [place], [place], [id number], [place] tel:[phone] [place] No Information 3 0- 3 Klahn Jace. . Referring Provider: Félix Reyes [address] [place] [address] [address], [place], [address]. [facility], [address], [place], [place], [id number], [place] tel:[phone] [place] No Information Nov2 3 Klahn Jace. . Referring Provider: Félix Reyes, [address] [place] [address] [address], [place], [address]. [facility], [address], [place], [place], [id number], [place] tel:[phone] [place] No Information Nov2 3 Klahn Jace. . Referring Provider: Félix Reyes, [address] [place] [address] [address], [place], [address]. [facility], [address], [place], [place], [address], [place] tel:[phone] [place] No Information 3 Klahn Jace. . Referring Provider: Félix Reyes, [address] [place] [address] [address], [place], [address]. [facility], [address], [place], [place], [id number], [place] tel:[phone] [place] No Information Nov 3 Kln Jace. . Referring Provider: Félix Reyes, [address] [place] [address] [address], [place], [address]. [facility], [address], [place], [place], [address], [place] tel:[phone] [place] No Information Nov0 3 Kln Jace. . Referring Provider: Félix Reyes, [address] [place] [address] [address], [place], [address]. [facility], [place], [place], [id number], [place] tel:[phone] [place] No Information Nov0 3 Kln Jace. . Referring Provider: Félix Reyes, [address] [place] [address] [address], [place], [address]. [facility] [address], [place], [place], [address], tel:[phone] [place] No Information 0 2- 3 Michel Mccormick. . Referring Provider: Félix Reyes, [address] [place] [address] [address], [place], [address]. [facility], [facility] [address], [place], [place], [address], tel:[phone] [place] No Information 3 0- 3 Michel Mccormick. . Referring Provider: Félix Reyes, [address] [place] [address] [address], [place], [address]. [facility], [address], [place], [place], [address], tel:[phone] [place] No Information 3 Michel Mccormick. . Referring Provider: Félix Reyes, [address] [place] [address] [address], [place], [address]. [address], [place], [place], [id number], tel:[phone] [place] Pain in left finger(s)Rec urrent dislocation, left finger Ovi-0 [address] Consuelo Pritchett. [address] [facility], [address], [place], [place], [facility], [place]. tel:[phone] Referring Provider: Félix Reyes, [address] [place] [address] [address], [place], [address]. Family History Family Member Type Diagnosis Age At Onset No Information Payers Payer name Insurance type Covered alliance party ID Skinny sandoval(s) [facility] [id number] Social History Type Description Quantity Date Captured [...]
[2024-11-20 16:22] VITALS: BP 137/66; PULSE 84; RESP 18; TEMP 36.6; O2SAT 100
--- NOTE | 2024-11-20 16:49 | ED_ITS ---
HPI - Fall General Chief Complaint: Fall Stated Complaint: fall Time Seen by Provider: 11/20/24 16:27 Source: patient, family () and RN notes reviewed Mode of arrival: ambulatory Limitations: no limitations History of Present Illness HPI Narrative: Patient presents today complaining of a left knee injury. Approximately 3 hours prior to arrival, patient was carrying some heavy objects and tripped just outs [employer] and fell onto her knees. Denies any other injuries. She currently rates her pain at rest 2/10, which increases with weight-bearing. She has applied ice prior to arrival with minimal relief. Related Data Home Medications ?Medication ?Instructions ?Recorded ?Confirmed ?Last Taken ?Type cholecalciferol (vitamin D3) 125 5,000 unit PO DAILY 08/24/19 10/05/24 10/04/24 History mcg (5,000 unit) capsule famotidine 20 mg tablet 40 mg PO DAILY 08/29/20 10/05/24 10/04/24 History lansoprazole 30 mg capsule,delayed 30 mg PO DAILY 08/29/20 10/05/24 10/04/24 History release (Prevacid) scopolamine base 1 mg over 3 days 1 patch transdermal Q3D PRN Nausea 05/22/23 09/20/24 05/22/23 08:00 History transdermal patch (Transderm-Scop) methocarbamol 500 mg tablet 500 mg PO QHS 09/15/24 10/05/24 10/04/24 History meclizine 25 mg tablet (Dramamine 25 mg PO ONCE PRN dizziness 09/20/24 09/20/24 Unknown History (meclizine)) Allergies Allergy/AdvReac Type Severity Reaction Status Date / Time adhesive tape Allergy Blister Verified 11/20/24 16:26 azithromycin (From Zithromax Allergy Hypotension Verified 11/20/24 16:26 Z-Juaquin) clarithromycin Allergy Itching Verified 11/20/24 16:26 Macrolide Antibiotics Allergy Hypotension Verified 11/20/24 16:26 meperidine Allergy Rash Verified 11/20/24 16:26 naproxen Allergy Swelling Verified 11/20/24 16:26 Influenza Virus Vaccines AdvReac Intermediate Itching,Marco Verified 11/20/24 16:26 ma Review of Systems Review of Systems: CONSTITUTIONAL: Denies body aches, fever, chills, or sweats. EYES: Denies visual changes, redness, or discharge. ENT: Denies rhinorrhea, congestion, sore throat, or otalgia. CARDIOVASCULAR: Denies chest pain, palpitations, or edema. RESPIRATORY: Denies cough or dyspnea. GASTROINTESTINAL: Denies abdominal pain, nausea, vomiting, or diarrhea. GENITOURINARY: Denies dysuria or hematuria. SKIN: Denies rash, itching, or wounds. MUSCULOSKELETAL: + left knee injury NEUROLOGIC: Denies headache, numbness, tingling, or weakness. PSYCH: Denies depression or anxiety. [facility] Past Medical History Medical History Choking Colon cancer screening AC joint arthropathy DVT of leg (deep venous thrombosis) Acute medial meniscus tear of left knee Arthritis of knee, left Ganglion cyst of volar aspect of right wrist Hyperlipidemia GERD (gastroesophageal reflux disease) Migraine Asthma Chronic low back pain Ganglion, right wrist Lateral meniscus tear, current Iliotibial band syndrome affecting left lower leg Surgical History Surgical History S/P left knee arthroscopy Family History Family History Mother Patient's mother is in good health Family history of diabetes mellitus in first degree relative Asthma Family history of elevated blood lipids Grandparent Family history of coronary artery disease, Onset Age: 75 Diabetes mellitus, Onset Age: 70 Father Hypertension Patient's father is in good health Heart disease Other Family history of arthritis Family history of cardiovascular disease Family history of kidney disease Social History Social History Smoking status: Never smoker Second hand tobacco smoke exposure: Yes Alcohol intake: current Alcohol use details: 2/MONTH Substance use: never Substance use type: does not use Do You Feel Safe in your Home?: Yes Lack of Transportation: No Lack of Food: Never True Current Housing: I Have Housing Concerned About Future Housing: No Difficulty Paying Gas/Electric Bills: No Difficulty Paying for Meds: No Currently Unemployed: No Education: Bachelor's Degree Difficulty w/ Childcare or Family Care: No Living arrangements: with family Occupation/Education: occupation 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 Please see nursing chart for further information. There is no relevant family history pertinent to the presenting complaint Exam Narrative: GENERAL: Well-appearing, well-nourished, and in no acute distress. HEAD: Normocephalic, atraumatic. EYES: EOMI. No redness or drainage. Conjunctivae normal. ENT: Mucous membranes pink and moist. NECK: Normal AROM. CHEST: No respiratory distress. EXTREMITIES: Left knee:ecchymosis, tenderness and localized edema to the anterior knee. No tenderness to the medial or lateral joint line. No posterior tenderness. Pain with passive internal rotation. Distal sensation intact. SKIN: Warm, dry, no rash. Capillary refill normal. Normal skin turgor. NEURO: No focal deficits. Alert and oriented x3. Gait steady. PSYCH: Normal affect. No signs of depression or anxiety. Course Course Level of Care: Express Care Visit Vital Signs Vital signs: Vital Signs Temperature 97.9 F 11/20/24 16:22 Pulse Rate 84 11/20/24 16:22 Respiratory Rate 18 11/20/24 16:22 Blood Pressure 137/66 11/20/24 16:22 Pulse Oximetry 100 11/20/24 16:22 Oxygen Delivery Room Air 11/20/24 16:22 Temperature 97.9 F 11/20/24 16:22 Pulse Rate 84 11/20/24 16:22 Respiratory Rate 18 11/20/24 16:22 Blood Pressure 137/66 11/20/24 16:22 Pulse Oximetry 100 11/20/24 16:22 Oxygen Delivery Room Air 11/20/24 16:22 Reviewed MDM - Fall MDM Narrative Medical decision making narrative: X-ray is negative for bony abnormalities, but likely hematoma overlying the patellar tendon. Offered patient Jr wrap and crutches. She has declined both. Recommend OTC medication for symptoms as well as ice and rest. She has had knee surgeries in the past, and will follow-up with orthopedist if symptoms persist. Copy of xray and report provided. Differential Diagnosis Differential diagnosis: Likely other (Contusion, fracture, ligamentous injury) Imaging Data Radiologist's impression: ITS Impressions Knee X-Ray 11/20/24 17:02 IMPRESSION: No acute osseous abnormality left knee. Soft tissue swelling anterior to the patellar tendon which may be a hematoma. Critical Care Time Critical Care Time Critical Care Time: No Discharge Plan Discharge Clinical Impression: Fall from slip, trip, or stumble Qualifiers: Encounter type: initial encounter Qualified Code(s): W01.0XXA - Fall on same level from slipping, tripping and stumbling without subsequent striking against object, initial encounter Traumatic hematoma of left knee Qualifiers: Encounter type: initial encounter Qualified Code(s): S80.02XA - Contusion of left knee, initial encounter Patient Disposition: Home Condition: Stable Instructions: Hematoma (ED) Additional Instructions: Your x-ray is negative for fracture. Elevate and ice the knee. Take Tylenol or ibuprofen for pain. Follow-up with orthopedics in 7-10 days if symptoms are not improving. Your blood pressure was elevated above 120/80 today at Urgent Care. This puts you above the threshold for follow up. Please schedule a followup visit with your personal physician as soon as possible, for further evaluation and treatment. Even blood pressure exceeding 120/80 may indicate pre-hypertension. Patient Language: Sinhala Prescriptions: No Action cholecalciferol (vitamin D3) 125 mcg (5,000 unit) capsule 5,000 unit PO DAILY methocarbamol 500 mg tablet 500 mg PO QHS famotidine 20 mg tablet 40 mg PO DAILY Patient Comments: PT TAKES AT HS lansoprazole [Prevacid] 30 mg capsule,delayed release(DR/EC) 30 mg PO DAILY scopolamine base [Transderm-Scop] 1 mg over 3 days Patch 3 Day 1 patch TRANSDERMAL Q3D PRN (Reason: Nausea) meclizine [Dramamine (meclizine)] 25 mg tablet 25 mg PO ONCE PRN (Reason: dizziness) albuterol sulfate 90 mcg/actuation aerosol powdr breath activated 2 inh INHALATION Q6H PRN (Reason: ASTHMA ATTACK) Qty: 1 1RF gabapentin 100 mg capsule 100 mg PO BID Qty: 180 1RF pantoprazole 40 mg tablet,delayed release (DR/EC) See Rx Instructions .ROUTE .COMPLEX Qty: 90 3RF Dose Instruction: TAKE 1 TABLET BY MOUTH EVERY MORNING Rx Instructions: TAKE 1 TABLET BY MOUTH EVERY MORNING Nurtec ODT 75 mg tablet,disintegrating 75 mg PO ONCE PRN (Reason: migraine headache) Qty: 8 0RF Rx Instructions: as a single dose 8 tabs samples given on 11/11/2023. Lot [id number]; Exp 04/04 potassium chloride 10 mEq tablet extended release 10 meq PO DAILY Qty: 180 1RF metoprolol succinate 25 mg tablet extended release 24 hr See Rx Instructions .ROUTE .COMPLEX Qty: 90 3RF Dose Instruction: TAKE 1 TABLET BY MOUTH DAILY Rx Instructions: TAKE 1 TABLET BY MOUTH DAILY @ HS triamterene-hydrochlorothiazid 37.5-25 mg capsule 1 cap PO DAILY Qty: 90 2RF atorvastatin 10 mg tablet See Rx Instructions .ROUTE .COMPLEX Qty: 90 3RF Dose Instruction: TAKE 1 TABLET BY MOUTH DAILY Patient Comments: TAKES AT HS Rx Instructions: TAKE 1 TABLET BY MOUTH DAILY magnesium oxide 400 mg (241.3 mg magnesium) tablet See Rx Instructions .ROUTE .COMPLEX Qty: 90 1RF Dose Instruction: TAKE 1 TABLET BY MOUTH DAILY Rx Instructions: TAKE 1 TABLET BY MOUTH DAILY Follow-up/Referrals: Rodo Blanco DO [Primary Care Provider] - Time of Disposition: 17:11
== END 2024-11-20 17:13 | disposition home or self-care (01) ==
PROVIDERS: Emergency Provider Nurse Practitioner; PCP Internal Medicine
DX: S80.02XA Contusion of left knee, initial encounter (principal); E78.5 Hyperlipidemia, unspecified; Z86.718 Personal history of other venous thrombosis and embolism; W01.0XXA Fall on same level from slipping, tripping and stumbling without subsequent striking against object, initial encounter
CPT/HCPCS: 73564; 99213; G0463

== ENCOUNTER 2025-01-20 13:18 | Outpatient (CLI) | payer BC, SELFPAY ==
--- OUTSIDE RECORDS SUMMARY | 2025-01-20 13:56 | XMS_ITS | Clinical Summary ---
Author Organization [facility] Address [address] [place] [address] Phone Care Team Providers Care Student Assistance Counselor Name Role Phone Krzysztof Martines DO Primary Care Provider [phone] Allergies Active Allergy Reactions Criticality Noted Date [...] hours off. 15 Patch 10/06/2021 4:55 PM REGULATORY AFFAIRS DIRECTOR 10/06/2021 Active naproxen (NAPROSYN) 500 mg tablet Take 1 Tablet (500 mg) by mouth 2 times daily with meals. 20 Tablet 10/06/2021 Active diazePAM (VALIUM) 5 mg tabletIndicatio ns:Acute bilateral low back pain without sciatica Take 1 Tablet (5 mg) by mouth every 12 hours as needed for Spasm. 6 Tablet 10/06/2021 4:55 PM REGULATORY AFFAIRS DIRECTOR 10/06/2021 Active Social History Tobacco Use Types Packs/Day Years Used Date Smoking Tobacco: Never Assessed Comments Unknown Sex and Gender Information Value Date Recorded Sex Assigned at Not on file Legal Sex Female 1:59 PM REGULATORY AFFAIRS DIRECTOR Gender Identity Not on file Sexual Orientation Not on file Last Filed Vital Signs Vital Sign Reading Time Taken Comments Blood Pressure 116/69 10/06/2021 6:40 PM REGULATORY AFFAIRS DIRECTOR Pulse 83 10/06/2021 6:40 PM REGULATORY AFFAIRS DIRECTOR Temperature 37.1 C (98.7 F) 10/06/2021 2:17 PM REGULATORY AFFAIRS DIRECTOR Respiratory Rate 18 10/06/2021 6:40 PM REGULATORY AFFAIRS DIRECTOR Oxygen Saturation 100% 10/06/2021 6:40 PM REGULATORY AFFAIRS DIRECTOR Inhaled Oxygen Concentration - - Weight - [...] Insurance [employer] [facility] Care Teams Student Assistance Counselor Relationship Specialty Start Date End Date Krzysztof Martines DO [address] [facility] [address] [place] [address] PCP - General Internal Medicine 10/06/21
--- OUTSIDE RECORDS SUMMARY | 2025-01-20 13:56 | XMS_ITS | Clinical Summary ---
Author Organization [facility] Address [address] [place] [address] Care Team Providers Care Meat Press Operator Name Role Phone Connor Marie MD Primary Care Provider Krzysztof Martines DO Unavailable [phone] Source Comments [facility],non-owned Affiliates and Associated Physician Practices is amultiple site organization consisting of ambulatory clinics and hospital sitesin [place], [place], [place] and [place]. This disclosure is being madepursuant to the Care Everywhere program and may not contain all information available regarding this patient. Last updated 18.[facility] Health Encounters Date Type Department Care Team Description 01/05/2025 Travel from Last 3 Months Immunizations Immunization Administration Dates Next Due FLU VACCINE QUAD IIV4 PF ID 05/28/2016 Social History Tobacco Use Types Packs/Day Years Used Date Smoking Tobacco: Never Assessed Comments Unknown Sex and Gender Information Value Date Recorded Sex Assigned at Not on file Legal Sex Female 1:57 PM CDT Gender Identity Not on file Sexual Orientation Not on file Plan of Treatment Upcoming Encounters Date Type Department Care Team (Late st Contact Info) Description 02/28/2025 2:45 PM CDT Office Visit [facility] - ENT [address] [place] [address] Ruben Lui MD [address] [place] [address] Health Maintenance Due Date Last Done Comments COLOGUAJOVAN (AGES 45-75) - COL ON CA SCREENING [...] patient's age to complete this topic Insurance [facility], [facility] Care Teams Meat Press Operator Relationship Specialty Start Date End Date Connor Marie MD [address] [place] [address] PCP - General 01/23/21 Krzysztof Martines DO [id number] [facility] [address] [place] [address] Internal Medicine 01/23/21
--- OUTSIDE RECORDS SUMMARY | 2025-01-20 13:56 | XMS_ITS | Clinical Summary ---
Author Organization [facility] Address [address] [place] [id number] Care Team Providers Care Hat Block Maker Name Role Phone Krzysztof Martines MD Primary Care Provider [phone]- [phone] Allergies Active Allergy Reactions Criticality Noted Date [...] on file Legal Sex Female 1:47 AM FINANCIAL REPRESENTATIVE Gender Identity Not on file Sexual Orientation [...] (184 lb 15.5 oz) 021 10:39 AM FINANCIAL REPRESENTATIVE Height 172.7 cm (5' 8) 07/09/2021 10:3 9 AM FINANCIAL REPRESENTATIVE Body Mass Index 28.12 07/09/2021 10:39 AM FINANCIAL REPRESENTATIVE Plan of Treatment Health Maintenance Due Date [...] this topic Medical Devices Implanted Type Area Swing Grinder Device Identifier Shelf Expiration Date Model / [...] studies performed on 11/02/2020, and at [facility] on 07/09/2021 and 02/14/2023. The breasts are [...] studies performed on 11/02/2020, and at [facility] on 07/09/2021 and 02/14/2023. The breasts are [...] ID:[id number] (NAIC) Type:[employer] Address: [id number] [facility] [employer] [facility] [employer] Care Teams Hat Block Maker Relationship Specialty Start Date End Date Krzysztof Martines MD [address] [facility] [address] [place] [address] PCP - General 11/22/16
--- OUTSIDE RECORDS SUMMARY | 2025-01-20 13:56 | XMS_ITS | Encounter Summary ---
Author Organization [facility] Address [address] [facility] [place] [address] Care Team Providers Care Pattern Keeper Name Role Phone Connor Marie MD Primary Care Provider Krzysztof Martines DO Unavailable [phone] Encounter Details Date Type Department Care Team (Late Contact Info) Description 05/24/2021 Lab Requisition [facility] [address] [place] [id number] Danny Cantor MD [address] [place] [address] Social History Tobacco Use Types Packs/Day Years Used Date Smoking Tobacco: Never Assessed Comments Unknown Sex and Gender Information Value Date Recorded Sex Assigned at Not on file Legal Sex Female 1:57 PM CDT Gender Identity Not on file Sexual Orientation Not on file documented as of this encounter Plan of Treatment Upcoming Encounters Date Type Department Care Team (Late Contact Info) Description 02/28/2025 2:45 PM CDT Office Visit [facility] - [facility] [address] [place] [address] Ruben Lui MD [facility] [address] [place] [address] documented as of this encounter Procedures Procedure Name Priority Date/Time Associated Diagnosis Comments DERMATOPATHOLOGY Routine 05/22/2021 12:0 0 AM CDT documented in this encounter Results * DERMATOPATHOLOGY (05/22/2021 12:00 AM CDT) Case Report Dermatopathology Report Case: [id number] Authorizing Provider: Danny Cantor MD Collected: 05/22/2021 12:00 AM Ordering Location: [facility] Received: 05/24/2021 08:15 AM Pathologist: Mirna Eastman MD Specimens: A) - Skin, right superior inner thigh B) - Skin, left superior inner thigh 5:21 PM CDT DERMATOPATHOLOGY LABORATORY Final Diagnosis Specimen A. 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 5:21 PM CDT DERMATOPATHOLOGY LABORATORY Gross Description Specimen A: Received is one formalin filled container labeled with the patient's name and designated right superior inner thigh. The specimen consists of a punch biopsy measuring 0c5n2wk, bisected. Jar 0. Specimen B: Received is one formalin filled container labeled with the patient's name and designated left superior inner thigh. The specimen consists of a punch biopsy measuring 6p5n0vr, bisected. Jar 0. 5:21 PM CDT DERMATOPATHOLOGY LABORATORY Microscopic Description Specimen A. SKIN, [...] microscopic description in specimen A. 5:21 PM CDT DERMATOPATHOLOGY LABORATORY Disclaimer An external and internal positive and negative controls are appropriate for the histochemical, immunohistochemical and immunofluorescence stain(s) in this case (if any), except where stated explicitly. The performance characteristics of the stain(s) cited in this report were developed and its performance characteristic determined by the Dermatopathology Laboratory at [facility], directed by Dr. Rita Tong. These tests need not be, and therefore are not, approved by the [place] Food and Drug Administration. The tests are used for clinical purposes. Billing Codes Specimen Charges Stain Charges 31986 33703 1 1 12186 36683 34726 51442 1 1 1 1 5:21 PM CDT DERMATOPATHOLOGY LABORATORY Embedded Images 5:21 PM CDT DERMATOPATHOLOGY LABORATORY Pathology/Cytology TISSUE SPECIMEN FROM SKIN / Unknown 05/22/2021 05/24/2021 8:15 AM CDT Miscellaneous samples (specimen) TISSUE SPECIMEN FROM SKIN / Unknown 05/22/2021 05/24/2021 8:15 AM CDT us Danny Cantor MD LAB - PATHOLOGY/CYTOLOGY ORD ERABLES Final Result DERMATOPATHOLOGY LABORATORY [facility] - Department of Dermatology [facility] Medicine [address] [place] [address], [address] [phone] documented in this encounter Visit Diagnoses Not on filedocumented in this encounter Care Teams Pattern Keeper Relationship Specialty Start Date End Date Connor Marie MD [address] [place] [address] PCP - General 01/23/21 Krzysztof Martines DO [address] [facility] [address] [place] [address] Internal Medicine 01/23/21 documented as of this encounter
--- OUTSIDE RECORDS SUMMARY | 2025-01-20 13:56 | XMS_ITS | Referral Summary ---
Author Organization [facility] Address [address] [place] [address] Care Team Providers Care Molder Name Role Phone Krzysztof Martines MD Primary Care Provider [phone] Allergies Active Allergy Reactions Criticality Noted Date [...] file Legal Sex Female 1:47 AM DIRECTOR E LEARNING Gender Identity Not on file Sexual Orientation Not on file Last Filed Vital Signs Vital Sign Reading Time Taken Comments Blood Pressure 114/70 10/26/2015 1:30 PM CDT Pulse 74 10/26/2015 1:30 PM CDT Temperature - - Respiratory Rate - - Oxygen Saturation 99% 10/26/2015 1:30 PM CDT Inhaled Oxygen Concentration - - Weight 83.9 kg (184 lb 15.5 oz) 021 10:39 AM DIRECTOR E LEARNING Height 172.7 cm (5' 8) 07/09/2021 10:3 9 AM DIRECTOR E LEARNING Body Mass Index 28.12 07/09/2021 10:39 AM DIRECTOR E LEARNING Plan of Treatment Not on file Medical Devices Implanted Type Area Inside Contractor Sales Device Identifier Shelf Expiration Date Model / [...] imaging studies performed on 11/02/2020, and at [facility] on 07/09/2021 and 02/14/2023. The [...] imaging studies performed on 11/02/2020, and at [facility] on 07/09/2021 and 02/14/2023. The [...] Most Recently Relevant to Health Maintenance Insurance [facility] [employer] [facility] Explore.To Yellow Pages [place] [facility] [employer] Care Teams Molder Relationship Specialty Start Date End Date Krzysztof Martines MD [address] [facility] [address] [place], [place] [id number] PCP - General 11/22/16
== END 2025-01-20 13:19 | disposition home or self-care (01) ==
LOC: ANHAUDASC 13:20
PROVIDERS: PCP Nurse Practitioner; Visit Provider Otolaryngology
DX: H93.13 Tinnitus, bilateral (principal); H90.3 Sensorineural hearing loss, bilateral
CPT/HCPCS: 92557; 92567